=== PATIENT | male | born 1940 | race Caucasian/White ===

== ENCOUNTER → 2020-06-01 10:49 | Outpatient (BNVA) | payer MEDICARE, SELFPAY | PROVIDERS: Family Provider Family Medicine; PCP Family Medicine; Visit Provider Internal Medicine | DX: Z11.59 Encounter for screening for other viral diseases (principal) | CPT/HCPCS: 87635 ==

== ENCOUNTER → 2022-09-17 14:49 | Outpatient (BNVA) | payer MEDICARE, SELFPAY | PROVIDERS: Family Provider Family Medicine; PCP Family Medicine; Visit Provider Family Medicine | DX: L98.9 Disorder of the skin and subcutaneous tissue, unspecified (principal) | CPT/HCPCS: 88304 ==

== ENCOUNTER → 2022-09-25 10:05 | Outpatient (BNVA) | payer MEDICARE, SELFPAY | PROVIDERS: Family Provider Family Medicine; PCP Family Medicine; Visit Provider Family Medicine | DX: I48.91 Unspecified atrial fibrillation (principal); I10 Essential (primary) hypertension | CPT/HCPCS: 80053; 83735; 84443; 85025 ==

== ENCOUNTER 2022-10-02 13:55 | Inpatient (IN) | payer MEDICARE, SELFPAY ==
[2022-10-02] VITALS (24 sets, daily range): BP systolic 139–183; BP diastolic 51–85; PULSE 44–79; RESP 5–26; TEMP 37.1–37.4; O2SAT 89–95
--- NOTE | 2022-10-02 14:07 | ECG_ITS ---
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 Measurements Intervals [place] Rate: 49 P: -30 RI: 116 QRS: 4 QRSD: 94 T: 10 QT: 453 QTc: 411 Interpretive Statements SINUS BRADYCARDIA WITH SHORT RI INTERVAL Compared to ECG 02/19/2017 16:55:37 Short RI interval now present Sinus rhythm no longer present Electronically Signed On 10-03-2022 9:11:02 CUSTOMER SUPPORT CONSULTANT by Yoselin Wen M.D. [id number]
--- NOTE | 2022-10-02 14:07 | XR_ITS ---
WS: [id number] Exam: XR chest 1V portable [id number] Date/Time of Exam: 10/02/2022 2:07 PM Reason For Exam: dyspnea Comparison 02/19/2017. The lungs are fully expanded and clear. Interval cardiac enlargement since prev ious study. No pleural effusions. Bony structures are intact. The mediastinum is not widened. There i s upper thoracic dextroscoliosis. Osseous deformity of the upper thoracic spine and rib cage. XR/XR chest 1V portable [id number] IMPRESSION: 1. No acute cardiopulmonary finding. 2. Some interval cardiac enlargement since the previous study.
--- NOTE | 2022-10-02 15:37 | W.ED.ARRPALP ---
HPI - Arrhythmia/Palpitations General: Chief Complaint: Arrhythmia/Palpitations Stated Complaint: chest pains, low hr Time Seen by Provider: 10/02/22 15:37 History of Present Illness: Mr. Self is an 82-year-old gentleman with history of hypertension and a fib who presented to the emergency department due to chest discomfort with a low heart rate. He reports higher heart rate end approximately 9 days ago when he saw primary care was initiated on metoprolol. He has been taking this as directed and heart rate is continued to slow. He does note exertional dyspnea and orthopnea as well as intermittent arm discomfort and chest discomfort associated with this. He has generalized malaise. Intensity symptoms is moderate. Course has persisted. No other specific changes in health, exacerbating, or alleviating factors identified. Onset (ago): day(s) Duration: constant Severity: severe Context: change in medication Arrhythmia history: atrial fibrillation Associated symptoms: Reports pre-syncope, short of breath and other Review of Systems General: Reports: 10 or more systems reviewed and unremarkable except in HPI and below Card: Reports: pre-syncope PFSH ED PFSH: Medical History BPH (benign prostatic hyperplasia) Chronic indwelling Manning catheter Hip osteoarthritis Hypertension Paroxysmal A-fib Solitary kidney Suprapubic catheter Urinary retention Surgical History H/O hernia repair H/O transurethral resection of prostate Family History Mother Colon cancer Social History Smoking and tobacco status: never smoked Alcohol intake: never Household members: spouse Marital status: Physical Exam Const: COMMON NORMALS: alert GENERAL APPEARANCE: cooperative and well developed HENMT: COMMON NORMALS: normocephalic and atraumatic HEAD & SCALP: normocephalic and atraumatic Eye: COMMON NORMALS: conjunctivae normal CONJUNCTIVA: Yes conjunctivae normal SCLERA: sclerae normal Neck/C-Spine: COMMON NORMALS: supple GENERAL: Yes trachea midline Resp: COMMON NORMALS: clear to auscultation bilaterally EFFORT & INSPECTION: Yes able to speak in complete sentences AUSCULTATION: clear to auscultation bilaterally Cardio: COMMON NORMALS: regular rhythm RATE: bradycardic RHYTHM: regular rhythm GI: COMMON NORMALS: Soft to palpation PALPATION: Yes Soft to palpation and No Tenderness to palpation present (GI) Extremity: GENERAL: Yes normal exam except as noted and Yes edema Neuro: COMMON NORMALS: moves all extremities SENSORIUM/ORIENTATION: Yes alert and No Orientation impaired Psych: COMMON NORMALS: mental status grossly normal and Normal thought process present THOUGHT PROCESS: Normal thought process present Course Vital Signs: Vital signs: Vital Signs Temperature 97.9 F 10/09/22 03:23 Pulse Rate 94 10/09/22 09:42 Respiratory Rate 18 10/09/22 09:42 Blood Pressure 126/89 10/09/22 07:08 Pulse Oximetry 93 10/09/22 11:00 Oxygen Delivery Me thod 10/09/22 09:18 Oxygen Flow Rate 2 10/09/22 03:46 Fraction of Inspir ed Oxygen 2 10/09/22 08:00 MDM - Arrhythmia/Palpitations Medical Decision Making 82-year-old gentleman presenting with chest pain and low heart rate in the context of medication change. Exam as above. EKG notable for sinus bradycardia, no STEMI. Labs mild leukocytosis, normal hemoglobin. No significant electrolyte derangement to explain symptoms. BNP is elevated. Negative viral panel or COVID. Chest x-ray with no lobar consolidation or pneumothorax. Cardiac appears mildly large. Most likely etiology of patient's symptoms is symptomatic bradycardia. At rest he is largely asymptomatic however becomes markedly symptomatic upon exertion and therefore requires further inpatient management. The results of ED evaluation were discussed with the patient including plan for admission due to requirement for level of care not available if discharged to prevent significant worsening/deterioration. Patient agreeable with plan. Discussed with hospitalist service who was agreeable to admit patient. Medical Records I reviewed the patient's medical records. Lab Data I reviewed the patient's lab results. 10/02/22 16:06 10/02/22 16:06 Radiology Impressions Pulmonary Perfusion Imaging 10/03/22 19:27 IMPRESSION: Very low probability pulmonary embolism. Renal Ultrasound 10/05/22 20:10 IMPRESSION: 1. Left kidney not visualized in the renal fossa. See discussion above. 2. Otherwise unremarkable right kidney with mild compensatory enlargement. Abdomen/Pelvis CT 10/06/22 20:22 IMPRESSION: 1. Nonspecific 6 cm area of decreased attenuation in the lateral aspect of the spleen which may represent a large splenic infarct versus cyst versus abscess. This finding is new when compared to CT abdomen of 03/29/2015. Consider follow-up ultrasound or postcontrast CT abdomen to further assess this lesion. 2. Round atelectasis at the left lung base. This may be a sympathetic reaction to adjacent splenic pathology, located just below the diaphragm. 3. Enlarged prostate gland. 4. 3 x 5 cm right inguinal hernia, containing only fat. 5. Severe diverticulosis of the distal colon. No evidence of acute diverticulitis. 6. Decreased hepatic density is noted, consistent with hepatic steatosis. Chest X-Ray 10/08/22 08:58 Impression: Cardiomegaly with clearing of pulmonary vascular congestion. Abdomen Ultrasound 10/08/22 13:49 IMPRESSION: Complex fluid collection within the spleen. No increased vascularity and no significant encapsulation. May be related to hemorrhage or abscess. On the recent CT there is not a lot of inflammation surrounding the spleen. There is also no perisplenic fluid seen by ultrasound. Laboratory Results WBC 8.9 10^3/uL (4.0-10.0) 10/03/22 02:56 RBC 4.56 10^6/uL (4.1-5.3) 10/03/22 02:56 Hgb 12.3 g/dL (11.7-16.6) 10/03/22 02:56 Hct 39.1 % (42.0-52.0) L 10/03/22 02:56 MCV 85.7 fl (80-94) 10/03/22 02:56 MCH 27.0 pg (28.0-34.0) L 10/03/22 02:56 MCHC 31.5 g/dL (30.0-36.0) 10/03/22 02:56 RDW 13.6 % (12.1-15.1) 10/03/22 02:56 Plt Count 215 10^3/cmm (130-400) 10/03/22 02:56 MPV 10.7 fL (7.4-10.4) H 10/03/22 02:56 Neut % (Auto) 70.9 % 10/03/22 02:56 Lymph % (Auto) 16.6 % 10/03/22 02:56 [place] % (Auto) 11.2 % 10/03/22 02:56 Eos % (Auto) 0.3 % 10/03/22 02:56 Baso % (Auto) 0.3 % 10/03/22 02:56 Neut # (Auto) 6.32 10^3/uL (1.8-7.7) 10/03/22 02:56 Lymph # (Auto) 1.5 10^3/uL (0.8-4.8) 10/03/22 02:56 [place] # (Auto) 1.0 10^3/uL (0.2-0.9) H 10/03/22 02:56 Eos # (Auto) 0.0 10^3/uL (0.0-0.8) 10/03/22 02:56 Baso # (Auto) 0.0 10^3/uL (0.0-0.1) 10/03/22 02:56 Nucleated RBC % (auto) 0 % 10/03/22 02:56 Nucleated RBCs # 0.0 /100WBC 10/03/22 02:56 PT 14.00 SECONDS (12.1-14.9) 10/02/22 16:06 INR 1.05 (0.8-1.2) 10/02/22 16:06 APTT 27.4 SECONDS (23.9-36.7) 10/02/22 16:06 D-Dimer 2.15 ug/mIFEU (0-0.59) H 10/02/22 16:06 Sodium 136 mmol/L (136-145) 10/03/22 02:56 Potassium 3.2 mmol/L (3.5-5.1) L 10/03/22 02:56 Chloride 99 mmol/L (98-107) 10/03/22 02:56 Carbon Dioxide 26 mmol/L (22-29) 10/03/22 02:56 Anion Gap 14.2 (5-19) 10/03/22 02:56 BUN 23 mg/dL (8-23) 10/03/22 02:56 Creatinine 1.2 mg/dL (0.7-1.2) 10/03/22 02:56 GFR Calculation Not Reportable 10/03/22 02:56 Glucose 164 mg/dL (65-115) H 10/03/22 02:56 Calculated Osmolality 289 mOsm/kg (285-295) 10/03/22 02:56 Calcium 8.4 mg/dL (8.5-10.5) L 10/03/22 02:56 Magnesium 2.2 mg/dL (1.7-2.3) 10/02/22 16:06 Total Bilirubin 0.9 mg/dL (0.15-1.2) 10/03/22 02:56 AST 32 U/L (0-40) 10/03/22 02:56 ALT 58 U/L (0-41) H 10/03/22 02:56 Alkaline Phosphatase 91 U/L (40-130) 10/03/22 02:56 Troponin T Baseline 32 ng/L (0-15) H 10/02/22 16:06 Troponin T 120 Minute 33.18 ng/L (0-15) H 10/02/22 18:22 Delta Troponin T 1.18 ABS# (0-10) 10/02/22 18:22 Troponin T Hi Sens 6Hr 35.69 ng/L (0-15) H 10/02/22 21:05 Troponin T Hi Sens 6Hr Delta 3.69 ng/L (0-12) 10/02/22 21:05 NT-Pro-B Natriuret Pep 1931 pg/mL (0-450) H 10/02/22 16:06 Total Protein 6.0 g/dL (6.6-8.7) L 10/03/22 02:56 Albumin 3.1 g/dL (3.5-5.2) L 10/03/22 02:56 Globulin 2.9 g/dL (1.3-4.6) 10/03/22 02:56 TSH 2.74 uIU/mL (0.27-4.20) 10/02/22 16:06 Urine Color Claritza (Yellow) 10/03/22 09:25 Urine Appearance Hazy (CLEAR) A 10/03/22 09:25 Urine pH 5 (5-7) 10/03/22 09:25 Ur Specific [place] 1.020 (1.005-1.030) 10/03/22 09:25 Urine Protein 2+ (Negative) H 10/03/22 09:25 Urine Glucose (UA) Norm (Normal) 10/03/22 09:25 Urine Ketones 1+ (Negative) H 10/03/22 09:25 Urine Blood 2+ (Negative) H 10/03/22 09:25 Urine Nitrate Positive (Negative) H 10/03/22 09:25 Urine Bilirubin 1+ (Negative) H 10/03/22 09:25 Urine Urobilinogen Neg mg/dL (Negative) 10/03/22 09:25 Ur Leukocyte Esterase 1+ (Negative) H 10/03/22 09:25 Urine RBC 5-10 /hpf (0-2) H 10/03/22 09:25 Urine WBC 5-10 /hpf (0-5) H 10/03/22 09:25 Ur Squamous Epith Cells 0-4 /hpf (0-5) H 10/03/22 09:25 Amorphous Sediment 3+ /hpf 10/03/22 09:25 Urine Bacteria 3+ /hpf (NONE) H 10/03/22 09:25 Fine Granular Casts 0-4 /lpf H 10/03/22 09:25 Urine Mucus 2+ /hpf 10/03/22 09:25 Coronavirus 229E (PCR) Not detected (NOT DETECT) 10/02/22 17:20 Influenza Type A Ag negative (Negative) 10/03/22 08:00 Influenza Type B Ag negative (Negative) 10/03/22 08:00 SARS-CoV-2 (PCR) Not detected (NOT DETECT) 10/02/22 17:20 Discharge Plan Discharge Patient Disposition: Placed in Observation Admit Provider: Suresh Hahn Clinical Impression: Symptomatic bradycardia, CHF (congestive heart failure) Discharge Diet: Cardiac Discharge Activity: Resume usual activity and Increase activity as tolerated Coding Level of Care Code ED Cat Scan Technologist for Rusty Hartman
--- NOTE | 2022-10-02 16:07 | ECG_ITS ---
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 Measurements Intervals [place] Rate: 46 P: 78 DC: 189 QRS: 26 QRSD: 96 T: 60 QT: 430 QTc: 379 Interpretive Statements SINUS BRADYCARDIA Compared to ECG 10/02/2022 14:15:56 Short DC interval no longer present Electronically Signed On 10-03-2022 9:22:25 MANAGER HOME IMPROVEMENT by Yoselin Wen M.D. [id number]
[2022-10-02 16:18] LABS: Basophils % 0.2 %; Eosinophils # 0.1 10^3/uL (0.0-0.8); Eosinophils % 0.8 %; Hematocrit 40.7 % (42.0-52.0); Hemoglobin 13.1 g/dL (11.7-16.6); Lymphocytes # 1.5 10^3/uL (0.8-4.8); Lymphocytes % 12.6 %; Mean Corpuscular HGB Conc 32.2 g/dL (30.0-36.0); Mean Corpuscular Hemoglobin 27.5 pg (28.0-34.0); Mean Corpuscular Volume 85.3 fl (80-94); Mean Platelet Volume 10.6 fL (7.4-10.4); Monocytes % 8.1 %; Neutrophils # 9.29 10^3/uL (1.8-7.7); Neutrophils % 77.5 %; Nucleated Red Blood Cells % 0 %; Platelet Count 213 10^3/cmm (130-400); Red Blood Count 4.77 10^6/uL (4.1-5.3); Red Cell Distribution Width 13.7 % (12.1-15.1)
[2022-10-02 16:27] LABS: INR 1.05 (0.8-1.2); Partial Thromboplastin Time 27.4 SECONDS (23.9-36.7)
[2022-10-02 16:47] LABS: Troponin(5th) Baseline 32 ng/L (0-15)
[2022-10-02 16:55] LABS: Alanine Aminotransferase 71 U/L (0-41); Albumin Level 3.5 g/dL (3.5-5.2); Alkaline Phosphatase 102 U/L (40-130); Blood Urea Nitrogen 24 mg/dL (8-23); Calcium 8.9 mg/dL (8.5-10.5); Carbon Dioxide 27 mmol/L (22-29); Chloride 97 mmol/L (98-107); Globulin 3.2 g/dL (1.3-4.6); Glucose 172 mg/dL (65-115); Magnesium 2.2 mg/dL (1.7-2.3); NT Pro B Type Natriuretic Pept 1931 pg/mL (0-450); Osmolality Calculated 290 mOsm/kg (285-295); Sodium 136 mmol/L (136-145); Thyroid Stimulating Hormone 2.74 uIU/mL (0.27-4.20); Total Bilirubin 1.1 mg/dL (0.15-1.2); Total Protein 6.7 g/dL (6.6-8.7)
[2022-10-02 16:56] LABS: Anion Gap 15.8 (5-19); Aspartate Amino Transferase 32 U/L (0-40); Potassium 3.8 mmol/L (3.5-5.1)
[2022-10-02 18:02] LABS: D Dimer 2.15 ug/mIFEU (0-0.59)
[2022-10-02 18:53] LABS: Troponin 5 2HR 33.18 ng/L (0-15)
[2022-10-02 18:55] LABS: Troponin 5 2HR Delta 1.18 ABS# (0-10)
--- NOTE | 2022-10-02 19:05 | USCV_ITS ---
Aramis Julio Age: 82 Gender: M : 1940 Exam Date: 10/02/2022 22:50 Ordering Phys: Suresh Hahn MD Technologist: MICHEAL [place] [facility] [place]: HTN CHAMBERS bradycardia , cardiomegaly. No history of cardiac intervention per patient. BP: 139 / 51 HR: 71 Rhythm: Sinus Technical Quality: Adequate MEASUREMENTS (Male / Female) Normal Values 2D ECHO LV Diastolic Diameter PLAX 4.0 cm 4.2 - 5.9 / 3.9 - 5.3 cm LV Systolic Diameter PLAX 2.6 cm IVS Diastolic Thickness 1.6 cm 0.6 - 1.0 / 0.6 - 0.9 cm IVS Systolic Thickness 1.5 cm LVPW Diastolic Thickness 1.3 cm 0.6 - 1.0 / 0.6 - 0.9 cm LVPW Systolic Thickness 1.4 cm LVOT Diameter 2.8 cm LV Ejection Fraction 2D Teich 66.5 % LV Ejection Fraction MOD 2C 67.3 % LV Ejection Fraction 2C AL 67.6 % LA Diameter 5.8 cm LA Width 5.6 cm LA Height 6.3 cm RA Width 3.4 cm RA Height 5.0 cm Aorta at Sinotubular Diameter 3.5 cm IVC Diameter 2.3 cm M-MODE Aortic Annulus Diameter 3.8 cm LA Ao Ratio MM 1.6 MV E Point Septal Separation 0.3 cm DOPPLER AV Peak Velocity 158.0 cm/s LVOT Peak Velocity 135.0 cm/s AV Area Cont Eq vti 4.6 cm squared AV Area Cont Eq pk 5.3 cm squared MV Area PHT 3.7 cm squared Mitral E to A Ratio 1.9 MV E' Velocity 86.5 cm/s Mitral E to MV E' Ratio 14.5 Mitral E to LV E' Lateral Ratio 13.3 Mitral E to LV E' Septal Ratio 16.1 TR Peak Velocity 350.0 cm/s TR Peak Gradient 49.0 mmHg TV Peak E Velocity 65.0 cm/s Right Atrial Pressure 10.0 mmHg Pulmonary Artery Systolic Pressu 59.0 mmHg PV Peak Velocity 114.0 cm/s RV Acceleration Time 0.1 s RV Ejection Time 0.4 s RV AcT/ET 0.3 FINDINGS Left Ventricle Left ventricle is normal in size. LV systolic function is normal with EF of 55 to 60%. No regional wall motion abnormalities are seen. Right Ventricle Normal in size and function Right Atrium Normal in size Left Atrium Dilated Mitral Valve Structurally normal mitral valve. Mild mitral regurgitation. Aortic Valve Grossly normal. No significant stenosis or regurgitation. Tricuspid Valve Mild tricuspid regurgitation. RVSP is 55 to 60 mmHg. This is consistent with moderate pulmonary hypertension. Pulmonic Valve Not well-visualized Pericardium Normal Aorta Mildly dilated IVC Dilated CONCLUSIONS Technically limited quality echocardiogram because of poor ultrasonic windows LV systolic function is normal with EF of 55-60% Left atrial dilation Mild mitral regurgitation Mild tricuspid regurgitation Moderate pulmonary hypertension Mildly dilated ascending aorta IVC is dilated No comparison studies are available Manpreet Vasquez MD (Electronically Signed) Final Date: 03 October 2022 13:10 S
[2022-10-02 19:16] LABS: Adenovirus Not Detected (NOT DETECT); Chlamydia Pneumoniae Not Detected (NOT DETECT); Coronavirus 229E,HKU1,NL63,OC4 Not Detected (NOT DETECT); Human Metapneumovirus Not Detected (NOT DETECT); Human Rhinovirus/Enterovirus Not Detected (NOT DETECT); Influenza A Not Detected (NOT DETECT); Influenza A H1 Not Detected (NOT DETECT); Influenza A H1-2009 Not Detected (NOT DETECT); Influenza A H3 Not Detected (NOT DETECT); Influenza B Not Detected (NOT DETECT); Mycoplasma Pneumoniae Not Detected (NOT DETECT); Parainfluenza Virus Type 1 Not Detected (NOT DETECT); Parainfluenza Virus Type 2 Not Detected (NOT DETECT); Parainfluenza Virus Type 3 Not Detected (NOT DETECT); Parainfluenza Virus Type 4 Not Detected (NOT DETECT); Respiratory Syncytial Virus A Not Detected (NOT DETECT); Respiratory Syncytial Virus B Not Detected (NOT DETECT); SARS-COV-2 Not Detected (NOT DETECT)
--- NOTE | 2022-10-02 19:34 | PM.HP ---
Providers/Chief Complaint Admitting Physician: Suresh Hahn Primary Care Provider: Jorge Hess MD Chief Complaint: chest pains, low hr History of Present Illness Pleasant 82-year-old gentleman, hard of hearing, with history of HTN, BPH, urinary retention, chronic Manning catheter, recently diagnosed with atrial fibrillation, started on metoprolol, aspirin. He noticed that after starting metoprolol his heart rate has been decreasing. Presented to the hospital due to generalized arm pain, feeling short of breath, mild pain/discomfort in his arms. Noted to be bradycardic, heart rates in the 40s. With leukocytosis 12,000. Afebrile. Saturating 92% on room air. BUN 24, creatinine 1.2, ALT 71. NT proBNP 1931 without prior. Baseline troponin 32, QRS 133. Sinus bradycardia on EKG. Chest x-ray without acute findings, some interval cardiac lodgment since prior study. D-dimer 2.15. COVID-19 PCR not detected. He is noted to have very short thick neck. He does report getting orthopnea at night, waking up in the morning He is lacking air, gasping, with dry mouth. Review of Systems Const: Reports: fatigue; Denies: fever(s), chills, body aches or malaise Eyes: Denies: change in vision, eye discomfort or eye redness ENMT: Denies: throat pain, oral sores or ear or mastoid pain Card: Reports: other (BL arm pain earlier); Denies: chest pain, edema, pre-syncope or dyspnea on exertion Resp: Reports: dyspnea; Denies: productive cough, change in phlegm color or hemoptysis GI: Denies: abdominal pain, nausea, vomiting, diarrhea, constipation, hematochezia or melena : Denies: flank pain, difficulty urinating, urinary frequency or hematuria Musc: Denies: back pain, joint swelling or joint redness Skin/Breast: Denies: rash or new lesions Neuro: Denies: headache(s), numbness in extremities, weakness in extremities, dizziness, confusion or seizure-like activity Endo: Denies: polyuria or polydipsia Serg/Lymph: Denies: easy bleeding or tender lymph nodes All/Imm: Denies: urticaria or tongue swelling Medications/Allergies Home Medications Medication Instructions Recorded Confirmed Last Taken Type amlodipine 5 mg tablet 5 mg PO DAILY 08/29/22 10/02/22 10/02/22 History hydrochlorothiazide 25 mg tablet 25 mg PO DAILY 08/29/22 10/02/22 10/02/22 History hydrocodone 5 mg-acetaminophen 325 1 tab PO Q8H PRN pain 2 weeks #30 08/29/22 10/02/22 Unknown Rx mg tablet tabs aspirin 325 mg tablet 325 mg PO DAILY #30 tabs 09/25/22 10/02/22 10/02/22 Rx metoprolol tartrate 25 mg tablet 25 mg PO BID #60 tabs 09/25/22 10/02/22 10/02/22 Rx acetaminophen 325 mg capsule 650 mg PO QID PRN Pain 10/02/22 10/02/22 Unknown History ibuprofen 200 mg tablet 400 mg PO Q6H PRN Pain 10/02/22 10/02/22 Unknown History Allergies Allergy/AdvReac Type Severity Reaction Status Date / Time No Known Allergies Allergy Verified 10/02/22 16:45 PFSH Acute PFSH: Medical History (Updated 10/02/22 @ 20:23 by Suresh Hahn MD) BPH (benign prostatic hyperplasia) Chronic indwelling Manning catheter Hip osteoarthritis Hypertension Paroxysmal A-fib Solitary kidney Urinary retention Surgical History H/O hernia repair H/O transurethral resection of prostate Family History Mother Colon cancer Social History (Updated 10/02/22 @ 20:23 by Suresh Hahn MD) Smoking and tobacco status: never smoked Alcohol intake: never Substance/Drug Use: never Household members: spouse Marital status: Vitals/I&O/Wt Last Vital Signs Temp 99.1 F 10/02/22 15:07 Pulse 46 L 10/02/22 17:05 Resp 18 10/02/22 17:05 BP 171/63 10/02/22 17:05 Pulse Ox 93 10/02/22 17:05 O2 Del Method 10/02/22 19:15 Weight last 48 hrs Weight 95.254 kg Physical Exam Const: COMMON NORMALS: patient oriented x3 and alert GENERAL APPEARANCE: cooperative NUTRITIONAL APPEARANCE: overweight ORIENTATION/CONSCIOUSNESS: Yes awake OTHER: Hard of hearing HENMT: COMMON NORMALS: oropharynx normal Neck/C-Spine: OTHER: Thick short neck Resp: COMMON NORMALS: normal respiratory effort and clear to auscultation bilaterally AUSCULTATION: clear to auscultation bilaterally Cardio: COMMON NORMALS: no JVD, regular rhythm, S1 normal heart sound present, S2 normal heart sound present and No murmurs present (Cardio) RATE: bradycardic RHYTHM: regular rhythm HEART SOUNDS: S1 normal heart sound present and S2 normal heart sound present GI: COMMON NORMALS: Normal to inspection, nondistended, normoactive bowel sounds present, Soft to palpation and non-tender PALPATION: Yes Soft to palpation Extremity: COMMON NORMALS: no joint enlargement and no pedal edema Neuro: COMMON NORMALS: patient oriented x3 and moves all extremities SENSORIUM/ORIENTATION: Yes alert Skin: COMMON NORMALS: no rashes or lesions noted GENERAL SKIN EXAM: no rashes or lesions noted Data 10/02/22 16:06 10/02/22 16:06 A&P Assessment and plan (1) Symptomatic bradycardia: Symptomatic bradycardia, heart rates in the 40s, with fatigue, dyspnea, bilateral arm pain. Complete troponin EKG series. Assess TTE. Abnormal D-dimer, discussed with him additional assessment for PE. He states has a solitary kidney really would like to avoid risk of contrast. Agreeable on discussion of risks to anticoagulation, assessment by VQ scan tomorrow. Monitor on telemetry. Hold metoprolol. Otherwise electrolytes are okay. TSH is okay. (2) Dyspnea: Additional assessment as above. COVID-19 PCR negative. No obvious pneumonia on chest x-ray. Additionally dyspneic in the morning, fatigue. Thick short neck. High suspicion for sleep apnea. Possible additional underlying pulmonary disorder. Will benefit from sleep study, PFT. (3) Paroxysmal A-fib: Recently diagnosed. CHADS2 score of 2. Discussed with him anticoagulation, he is agreeable. Start with Lovenox. (4) Chronic indwelling Manning catheter: With history of urine obstruction, BPH. Unsuccessful with self-catheterization. Chronic catheter with leg bag. Follow-up with urology. Plan Solitary kidney HTN Attestations Medical Necessity Statement*: Place in observation for additional assessment and management of symptomatic bradycardia, dyspnea and gentleman recently notes with paroxysmal A. fib. Coding Level of Care Code Acute Musical String Maker for Chg Fwd Exam Comprehensive Diagnoses Symptomatic bradycardia R00.1 Dyspnea R06.00 Paroxysmal A-fib I48.0 Chronic indwelling Manning catheter Z97.8
[2022-10-02] MEDS: enoxaparin 100 mg/mL Syringe 95 MG SUBCUT (20:32)
[2022-10-02 21:30] LABS: Troponin 5 6HR 35.69 ng/L (0-15)
[2022-10-02 21:47] LABS: Troponin 5 6HR Delta 3.69 ng/L (0-12)
--- NOTE | 2022-10-02 22:36 | ECG_ITS ---
[facility] Test Date: 2022-10-02 Pat Name: Julio Self Department: Room: 111 Gender: Male Reference Assistant: : 1940 Requested By: Dimitry Baum Order Number: [id number] Wilbur MD: Manpreet Vasquez M.D. Measurements Intervals [place] Rate: 53 P: 71 [place]: 189 QRS: 49 QRSD: 99 T: 72 QT: 431 QTc: 407 Interpretive Statements SINUS BRADYCARDIA Compared to ECG 10/02/2022 16:48:30 No significant changes Electronically Signed On 10-03-2022 12:59:28 COUNTY OR CITY AUDITOR by Manpreet Vasquez M.D. [id number]
[2022-10-02] MEDS: HYDROcodone-acetaminophen 5-325 mg Tablet 1 TAB PO (23:32)
--- NOTE | 2022-10-02 23:53 | PC.NURSE ---
Patient chronic indwelling catheter with leg bag attached at this time.
[2022-10-03] VITALS (12 sets, daily range): BP systolic 102–156; BP diastolic 50–73; PULSE 46–70; RESP 10–30; TEMP 36.8–39.5; O2SAT 91–96
[2022-10-03 04:54] LABS: Basophils % 0.3 %; Eosinophils % 0.3 %; Hematocrit 39.1 % (42.0-52.0); Hemoglobin 12.3 g/dL (11.7-16.6); Lymphocytes # 1.5 10^3/uL (0.8-4.8); Lymphocytes % 16.6 %; Mean Corpuscular HGB Conc 31.5 g/dL (30.0-36.0); Mean Corpuscular Volume 85.7 fl (80-94); Mean Platelet Volume 10.7 fL (7.4-10.4); Monocytes % 11.2 %; Neutrophils # 6.32 10^3/uL (1.8-7.7); Neutrophils % 70.9 %; Nucleated Red Blood Cells % 0 %; Platelet Count 215 10^3/cmm (130-400); Red Blood Count 4.56 10^6/uL (4.1-5.3); Red Cell Distribution Width 13.6 % (12.1-15.1); White Blood Count 8.9 10^3/uL (4.0-10.0)
[2022-10-03 05:22] LABS: Alanine Aminotransferase 58 U/L (0-41); Albumin Level 3.1 g/dL (3.5-5.2); Alkaline Phosphatase 91 U/L (40-130); Anion Gap 14.2 (5-19); Aspartate Amino Transferase 32 U/L (0-40); Blood Urea Nitrogen 23 mg/dL (8-23); Calcium 8.4 mg/dL (8.5-10.5); Carbon Dioxide 26 mmol/L (22-29); Chloride 99 mmol/L (98-107); Globulin 2.9 g/dL (1.3-4.6); Glucose 164 mg/dL (65-115); Osmolality Calculated 289 mOsm/kg (285-295); Potassium 3.2 mmol/L (3.5-5.1); Sodium 136 mmol/L (136-145); Total Bilirubin 0.9 mg/dL (0.15-1.2)
[2022-10-03] MEDS: HYDROcodone-acetaminophen 5-325 mg Tablet 1 TAB PO (06:30)
[2022-10-03] MEDS: enoxaparin 100 mg/mL Syringe 95 MG SUBCUT ×2 (06:31→19:46)
--- NOTE | 2022-10-03 07:53 | XR_ITS ---
WS: [id number] Exam: XR chest 1V portable [id number] Date/Time of Exam: 10/03/2022 7:58 AM Reason For Exam: fever,sob Comparison 10/02/2022. There appears to be mild pulmonary vascular congestion. Heart size is top limits normal. No pleural e ffusions. No consolidating infiltrates are seen. The lungs are fully inflated. The mediastinum is nor mal in contour for technique. Bony structures are intact. XR/XR chest 1V portable [id number] IMPRESSION: 1. Pulmonary vascular congestion suggesting early CHF.
[2022-10-03] MEDS: hydroCHLOROthiazide 25 mg Tablet PO (08:28)
[2022-10-03] MEDS: levoFLOXacin 500 mg Tablet PO ×2 (08:28→08:29)
[2022-10-03 08:44] LABS: Influenza A by IFA negative (Negative); Influenza B by IFA negative (Negative)
[2022-10-03] MEDS: FUROsemide 10 mg/mL SDV 2mL 20 MG IVP (09:21)
[2022-10-03] MEDS: potassium chloride ER 20 mEq Tablet 40 MEQ PO (09:22)
[2022-10-03 09:46] LABS: Blood Urine 2+ (Negative); Glucose Urine UA Norm (Normal); Ketones Urine 1+ (Negative); Nitrate Urine Positive (Negative); Protein Urine 2+ (Negative); Urine Appearance Hazy (CLEAR); Urine Color Amber (Yellow); pH Urine 5 (5-7)
[2022-10-03 09:47] LABS: Add Urine Microscopic? YES; Bilirubin Urine 1+ (Negative); Leukocyte Esterase Urine 1+ (Negative); Urobilinogen Urine Neg (Negative)
[2022-10-03 10:15] LABS: Bacteria Urine 3+ /hpf; Squamous Epithelial Cell Urine 0-4 /hpf (0-5)
[2022-10-03 10:16] LABS: Add Urine Culture? Yes; Amorphous Sediment Urine 3+ /hpf; Fine Granular Casts Urine 0-4 /lpf; Mucus Urine 2+ /hpf
--- NOTE | 2022-10-03 10:44 | PC.CHAP ---
Pastoral Care Encounter/Spiritual Assessment Type of Contact [] Declined tool hardener visit [] Patient/Family/Request visit [] Outpatient visit [] Follow-up visit [] Physician referral [] Code/Alert []x Routine visit [] Staff referral [] Actively dying [] Patient sleeping [] Family support [] [] Out of room [] Palliative care [] [] Receiving care in room [] Pre-surgical visit [] Trauma [] Long length of stay [] ICU visit [] Other: Relational/Emotional Strength []x Patient feels connected with others/family/visitors/staff [] Distress [] Loneliness/isolation [] Abandonment Spirituality of Patient [x] Person of Erica [] Attends Protestant of their Erica [x] Believes in Prayer [] Reads Bible or Mosque materials [] There are Spiritual issues to be addressed Associate Dean Of Women Interventions [x] Prayer [] Active listening [] Non-anxious presence [] Spiritual/emotional support [] Crisis/trauma care [] Spiritual counseling [] Bereavement support [] Provided bereavement packet [] Provided Bible/devotional materials [] Provided toy/stuffed animal, coloring book to patient or family member [] Provided Communion [] Anointing/[place] [] Salvation [x] Completed spiritual assessment [] Other: Impact on Illness or Injury [] Angry [] Fearful [] Anxious [] Often cries [] Exhaustion [] Unable to work [] Unable to attend jehovah's witness [] Unable to walk/stand [] Unable to read [] Unable to drive [] Unable to eat/drink [] Unable to sleep [] Unable to be with family [] Patient intubated [] Other: Summary Time spent with patient
--- NOTE | 2022-10-03 11:09 | PC.NURSE ---
at approx 0745..pt became very restless, has rigors.pulled iv out.o2 level high 80's.placed on o2 via nc at 2l/min.oral temp 103.1.bp stable.dr griffin notified.he ordered blood cultures,ua,,pcxr,began antibiotic.tylenol given for fever.
--- NOTE | 2022-10-03 11:34 | PC.NURSE ---
vq scan performed.pt tolerated well.pt no longer agitated.temp has come down.
--- NOTE | 2022-10-03 12:05 | P.PN_ITS ---
Subjective Subjective: Very difficult morning this morning, feeling unwell, malaise, dyspnea, spiked a fever 100.6. Oxygen increased up to 5 L. Sat up in bed. Feeling slightly better. Blood culture, chest x-ray, rapid flu, UA obtained. Given Lasix, breathing treatment. Vitals/I&O/Wt Last Vital Signs Temp 99.2 F 10/03/22 11:45 Pulse 63 10/03/22 11:45 Resp 27 H 10/03/22 11:45 BP 102/50 10/03/22 11:45 Pulse Ox 94 10/03/22 11:45 O2 Del Method 10/03/22 11:45 O2 Flow Rate 5 10/03/22 11:45 10/02/22 10/03/22 10/03/22 22:59 06:59 14:59 Intake Total 0 / 0 120 / 120 Output Total 0 / 0 600 / 600 200 / 200 Balance 0 / 0 -600 / -600 -80 / -80 Weight last 48 hrs Weight 98.928 kg Weight 98.928 kg Weight 95.254 kg Physical Exam Const: COMMON NORMALS: patient oriented x3 and alert GENERAL APPEARANCE: cooperative NUTRITIONAL APPEARANCE: overweight ORIENTATION/CONSCIOUSNESS: Yes awake OTHER: Hard of hearing HENMT: COMMON NORMALS: oropharynx normal Neck/C-Spine: COMMON NORMALS: no JVD OTHER: Thick short neck Resp: COMMON NORMALS: normal respiratory effort AUSCULTATION: diminished lung sounds OTHER: Pursed lip breathing Cardio: COMMON NORMALS: no JVD, regular rhythm, S1 normal heart sound present, S2 normal heart sound present and No murmurs present (Cardio) RATE: bradycardic RHYTHM: regular rhythm HEART SOUNDS: S1 normal heart sound present and S2 normal heart sound present GI: COMMON NORMALS: Normal to inspection, nondistended, normoactive bowel sounds present, Soft to palpation and non-tender PALPATION: Yes Soft to palpation Extremity: COMMON NORMALS: no joint enlargement and no pedal edema Neuro: COMMON NORMALS: patient oriented x3 and moves all extremities SENSORIUM/ORIENTATION: Yes alert Skin: COMMON NORMALS: no rashes or lesions noted GENERAL SKIN EXAM: no rashes or lesions noted Data 10/03/22 02:56 10/03/22 02:56 Micro: Microbiology 10/03/22 09:30 Blood Culture - Preliminary Blood SPECIMEN COLLECTED 10/03/22 09:20 Blood Culture - Preliminary Blood SPECIMEN COLLECTED A&P Assessment and plan (1) CHF (congestive heart failure): Acute CHF, pulm edema. Lasix 20 mg IV. Cardiac diet. Monitor I&O. Type unknown. Follow-up pending TTE. Heart rate this morning slightly better up to 60s-low 70s. (2) Dyspnea: Very low probability of PE. Acute chest. Blood parameters are checked as well, negative. COVID-19 PCR negative. Empirically started on Levaquin for now in case of atypical pneumonia presentation given fever. Additionally dyspneic in the morning, fatigue. Thick short neck. High suspicion for sleep apnea. Possible additional underlying pulmonary disorder. Will benefit from sleep study, PFT. (3) Symptomatic bradycardia: Heart rate doing better with holding metoprolol. 60s to low 70s today. Continue to hold beta-brady. Pending TTE. Abnormal D-dimer, VQ scan very low probability of PE. Monitor on telemetry. Hold metoprolol. Otherwise electrolytes are okay. TSH is okay. (4) Paroxysmal A-fib: Recently diagnosed. CHADS2 score of 2. Discussed with him anticoagulation, he is agreeable. Lovenox. (5) Chronic indwelling Manning catheter: With history of urine obstruction, BPH. Unsuccessful with self-catheterization. Chronic catheter with leg bag. Follow-up with urology. Exchange catheter (6) UTI (urinary tract infection): Started on Levaquin as above. Follow-up urine culture. Exchange Manning Plan Fever: UTI as above Solitary kidney HTN Attestations Medical Necessity Statement*: Admission of over 2 midnights needed for assessment management of acute CHF, UTI, recovering from bradycardia. Coding Level of Care Code Acute Capital Project Engineer for [facility] Fwd Diagnoses CHF (congestive heart failure) I50.9 Dyspnea R06.00 Symptomatic bradycardia R00.1 Paroxysmal A-fib I48.0 Chronic indwelling Manning catheter Z97.8 UTI (urinary tract infection) N39.0
[2022-10-03] MEDS: ipratropium-albuterol 3 mL Neb INHALATION ×2 (13:16→22:11)
--- NOTE | 2022-10-03 16:48 | PC.NURSE ---
suprapubic catheter changed as ordered.#16 kazakh catheter inserted using aseptic technique.return of small amt dk ellen urine received.bulb inflated with 10 cc water.pt tolerated procedure well
--- NOTE | 2022-10-03 19:27 | NM_ITS ---
WS: [id number] NUCLEAR MEDICINE VENTILATION/PERFUSION LUNG SCAN HISTORY: assess for pe COMPARISON: Chest radiograph 10/01/2022 TECHNIQUE: Ventilation: 30.1 mCi of Technetium 99 DTPA aerosol inhaled. Perfusion: 5.2 mCi of technetium 99m MAA IV. Very good perfusion to both lungs. No pulmonary defects. Much better perfusion as compared to the kenneth tilation. Detection is heterogeneous due to airspace disease. NM/NM pul vent and perfus* [id number] IMPRESSION: Very low probability pulmonary embolism.
[2022-10-04] VITALS (14 sets, daily range): BP systolic 101–139; BP diastolic 49–71; PULSE 47–79; RESP 12–23; TEMP 36.7–37; O2SAT 22–99
[2022-10-04 02:06] LABS: Basophils % 0.2 %; Eosinophils # 0.3 10^3/uL (0.0-0.8); Eosinophils % 1.4 %; Hematocrit 37.9 % (42.0-52.0); Hemoglobin 12.2 g/dL (11.7-16.6); Lymphocytes # 1.9 10^3/uL (0.8-4.8); Lymphocytes % 8.3 %; Mean Corpuscular HGB Conc 32.2 g/dL (30.0-36.0); Mean Corpuscular Hemoglobin 27.4 pg (28.0-34.0); Mean Corpuscular Volume 85.2 fl (80-94); Mean Platelet Volume 11.2 fL (7.4-10.4); Monocytes # 1.9 10^3/uL (0.2-0.9); Monocytes % 8.3 %; Neutrophils # 18.67 10^3/uL (1.8-7.7); Neutrophils % 80.3 %; Nucleated Red Blood Cells % 0 %; Platelet Count 171 10^3/cmm (130-400); Red Blood Count 4.45 10^6/uL (4.1-5.3); Red Cell Distribution Width 13.8 % (12.1-15.1); White Blood Count 23.2 10^3/uL (4.0-10.0)
[2022-10-04 02:40] LABS: Alanine Aminotransferase 57 U/L (0-41); Albumin Level 2.9 g/dL (3.5-5.2); Alkaline Phosphatase 118 U/L (40-130); Anion Gap 18.2 (5-19); Aspartate Amino Transferase 46 U/L (0-40); Blood Urea Nitrogen 35 mg/dL (8-23); Calcium 8.6 mg/dL (8.5-10.5); Carbon Dioxide 26 mmol/L (22-29); Chloride 98 mmol/L (98-107); Globulin 3.1 g/dL (1.3-4.6); Glucose 236 mg/dL (65-115); Osmolality Calculated 302 mOsm/kg (285-295); Potassium 4.2 mmol/L (3.5-5.1); Sodium 138 mmol/L (136-145); Total Bilirubin 0.9 mg/dL (0.15-1.2)
[2022-10-04] MEDS: HYDROcodone-acetaminophen 5-325 mg Tablet 1 TAB PO ×2 (05:45→21:53)
--- NOTE | 2022-10-04 05:52 | PC.NURSE ---
Spoke with regarding patient complaint of constipation, Dr King ordered PRN MOM.
[2022-10-04] MEDS: ipratropium-albuterol 3 mL Neb INHALATION ×3 (07:35→19:39)
[2022-10-04] MEDS: enoxaparin 100 mg/mL Syringe 95 MG SUBCUT ×2 (08:09→18:26)
[2022-10-04] MEDS: hydroCHLOROthiazide 25 mg Tablet PO (08:11)
[2022-10-04] MEDS: levoFLOXacin 500 mg Tablet PO (08:11)
[2022-10-04] MEDS: polyethylene glycol 3350 Pkt 17 gm PO (12:24)
--- NOTE | 2022-10-04 20:49 | PM.PN ---
Subjective Subjective: Today he is feeling slightly better. Discussed with him improving oxygenation. Discussed JAKE. Discussed high suspicion for RONALD. Vitals/I&O/Wt Last Vital Signs Temp 98.2 F 10/04/22 04:00 Pulse 67 10/04/22 19:39 Resp 16 10/04/22 15:30 BP 131/71 10/04/22 15:30 Pulse Ox 22 L 10/04/22 19:39 O2 Del Method 10/04/22 19:39 O2 Flow Rate 3 10/04/22 19:39 FiO2 3.5 10/04/22 02:00 10/04/22 10/04/22 10/04/22 06:59 14:59 22:59 Intake Total 720 / 720 Output Total 175 / 575 400 / 400 Balance -175 / 10 720 / 720 -400 / 320 Weight last 48 hrs Weight 103.022 kg Weight 98.928 kg Weight 98.928 kg Physical Exam Narrative: at bedside. Const: COMMON NORMALS: patient oriented x3 and alert GENERAL APPEARANCE: cooperative NUTRITIONAL APPEARANCE: overweight ORIENTATION/CONSCIOUSNESS: Yes awake OTHER: Hard of hearing HENMT: COMMON NORMALS: oropharynx normal Neck/C-Spine: COMMON NORMALS: no JVD OTHER: Thick short neck Resp: COMMON NORMALS: normal respiratory effort and clear to auscultation bilaterally AUSCULTATION: clear to auscultation bilaterally and diminished lung sounds Cardio: COMMON NORMALS: no JVD, regular rhythm, S1 normal heart sound present, S2 normal heart sound present and No murmurs present (Cardio) RATE: bradycardic RHYTHM: regular rhythm HEART SOUNDS: S1 normal heart sound present and S2 normal heart sound present GI: COMMON NORMALS: Normal to inspection, nondistended, normoactive bowel sounds present, Soft to palpation and non-tender PALPATION: Yes Soft to palpation Extremity: COMMON NORMALS: no joint enlargement and no pedal edema Neuro: COMMON NORMALS: patient oriented x3 and moves all extremities SENSORIUM/ORIENTATION: Yes alert Skin: COMMON NORMALS: no rashes or lesions noted GENERAL SKIN EXAM: no rashes or lesions noted Data 10/04/22 01:04 10/04/22 01:04 Micro: Microbiology 10/03/22 09:25 Urine Culture - Preliminary Urine,Clean Catch Gram Negative Rods 10/03/22 09:20 Blood Culture - Preliminary Blood 10/03/22 09:30 Blood Culture - Preliminary Blood A&P Assessment and plan (1) CHF (congestive heart failure): With improvement in symptoms. Noted dilated IVC. With worsening renal function with diuresis. Overall may portend poor prognosis. Reassess renal function, volume status. Acute diastolic heart failure. Bradycardia has improved. (2) Dyspnea: Due to acute diastolic CHF, RONALD likely as well. Levaquin for possible pneumonia. Feeling somewhat better today. X-rays are improving, down to 3 L nasal cannula requirement. Very low probability of PE. Blood parameters are checked as well, negative. COVID-19 PCR negative. Additionally dyspneic in the morning, fatigue. Thick short neck. High suspicion for sleep apnea. Possible additional underlying pulmonary disorder. Will benefit from sleep study, PFT. (3) Symptomatic bradycardia: Heart rate doing better with holding metoprolol. 60s to low 70s today. Continue to hold beta-brady. Abnormal D-dimer, VQ scan very low probability of PE. Monitor on telemetry. Hold metoprolol. Otherwise electrolytes are okay. TSH is okay. (4) Paroxysmal A-fib: Recently diagnosed. CHADS2 score of 2. Discussed with him anticoagulation, he is agreeable. Lovenox. TTE ?Technically limited quality echocardiogram because of poor ?ultrasonic windows ?LV systolic function is normal with EF of 55-60% ?Left atrial dilation ?Mild mitral regurgitation ?Mild tricuspid regurgitation ?Moderate pulmonary hypertension ?Mildly dilated ascending aorta ?IVC is dilated ?No comparison studies are available (5) Chronic indwelling Manning catheter: With history of urine obstruction, BPH. Unsuccessful with self-catheterization. Chronic catheter with leg bag. Follow-up with urology. Catheter to. (6) UTI (urinary tract infection): Complicated UTI with chronic suprapubic catheter. Continue Levaquin. Follow-up urine culture. Catheter changed. Plan HPI: Creatinine up to 2. Discussed with him to discontinue taking ibuprofen. Hold HCTZ. Held diuretics for now. Reassess renal function. Suprapubic catheter exchanged. Fever: UTI as above Solitary kidney HTN Attestations Medical Necessity Statement*: Continue admission for assessment and management of acute diastolic CHF complicated by JAKE. Complicated UTI. Coding Level of Care Code Acute Machine Cleaner for [facility] Diagnoses CHF (congestive heart failure) I50.9 Dyspnea R06.00 Symptomatic bradycardia R00.1 Paroxysmal A-fib I48.0 Chronic indwelling Manning catheter Z97.8 UTI (urinary tract infection) N39.0
[2022-10-05] VITALS (14 sets, daily range): BP systolic 96–148; BP diastolic 62–77; PULSE 61–145; RESP 12–25; TEMP 36.4–36.9; O2SAT 92–98
[2022-10-05 01:31] LABS: Basophils % 0.1 %; Eosinophils % 0.1 %; Hematocrit 36.7 % (42.0-52.0); Lymphocytes # 1.7 10^3/uL (0.8-4.8); Lymphocytes % 8.4 %; Mean Corpuscular HGB Conc 32.7 g/dL (30.0-36.0); Mean Corpuscular Hemoglobin 27.5 pg (28.0-34.0); Mean Corpuscular Volume 84.2 fl (80-94); Mean Platelet Volume 11.1 fL (7.4-10.4); Monocytes % 10.3 %; Neutrophils % 79.2 %; Nucleated Red Blood Cells % 0 %; Platelet Count 162 10^3/cmm (130-400); Red Blood Count 4.36 10^6/uL (4.1-5.3); White Blood Count 19.8 10^3/uL (4.0-10.0)
[2022-10-05 01:51] LABS: Alanine Aminotransferase 42 U/L (0-41); Albumin Level 2.8 g/dL (3.5-5.2); Alkaline Phosphatase 98 U/L (40-130); Anion Gap 14.9 (5-19); Aspartate Amino Transferase 23 U/L (0-40); Blood Urea Nitrogen 45 mg/dL (8-23); Calcium 8.3 mg/dL (8.5-10.5); Carbon Dioxide 26 mmol/L (22-29); Chloride 97 mmol/L (98-107); Globulin 3.2 g/dL (1.3-4.6); Glucose 233 mg/dL (65-115); Osmolality Calculated 297 mOsm/kg (285-295); Potassium 3.9 mmol/L (3.5-5.1); Sodium 134 mmol/L (136-145); Total Bilirubin 0.6 mg/dL (0.15-1.2)
[2022-10-05] MEDS: ipratropium-albuterol 3 mL Neb INHALATION ×3 (08:28→19:32)
--- NOTE | 2022-10-05 11:15 | ECG_ITS ---
[facility] Test Date: 2022-10-05 Pat Name: Julio Self Department: Room: 111 Gender: Male Welfare Eligibility Worker: : 1940 Requested By: Suresh Hahn Order Number: [id number] Wilbur MD: Yoselin Wen M.D. Measurements Intervals [place] Rate: 141 P: 0 GA: 0 QRS: -3 QRSD: 91 T: 34 QT: 286 QTc: 438 Interpretive Statements ATRIAL FIBRILLATION WITH RAPID VENTRICULAR RESPONSE NONSPECIFIC T-WAVE ABNORMALITY Compared to ECG 10/02/2022 22:36:50 T-wave abnormality now present Sinus bradycardia no longer present Electronically Signed On 10-06-2022 8:30:33 DEDICATED REGIONAL DRIVER by Yoselin Wen M.D. [id number]
[2022-10-05] MEDS: levoFLOXacin 500 mg Tablet PO (11:27)
[2022-10-05] MEDS: enoxaparin 100 mg/mL Syringe 95 MG SUBCUT (11:27)
--- NOTE | 2022-10-05 11:55 | PC.NURSE ---
Patient is tachy with a heart rate of 140-150. EKG completed by respiratory which shoes afib with RVR. Dr Oliveira notified via [facility] messenger, no response. Nurse tried to call Selma via the lathe set up operator and it went to voicemail and voicemail is full.
--- NOTE | 2022-10-05 11:59 | PC.NURSE ---
Dr. Hahn came to the nurse's station shortly after I tried to call him and acknowledged patient's EKG and told racebook writer patient will be seen by Dr. Wen because he came in with bradycardia.
[2022-10-05] MEDS: acetaminophen 325 mg Tablet 650 MG PO (12:03)
--- NOTE | 2022-10-05 12:20 | P.CONIM_ITS ---
Providers/Reason For Consult Consulting Physician/Specialty*: Dr. Wen, cardiology Reason for Consult*: Atrial fibrillation, bradycardia Attending Physician: Suresh Hahn Primary Care Provider: Jorge Hess MD History of Present Illness History of Present Illness Julio Self is a 82 year old male with past medical history of hypertension, obesity, BPH, history of urinary retention with chronic indwelling Manning catheter and recently diagnosed atrial fibrillation. He was started on aspirin and metoprolol recently by Dr. Hess. Patient had seen his primary care physician with not feeling well and shortness of breath and was found to be in atrial fibrillation with rapid Johnna response with heart rate in 130s. After being started on metoprolol, it seems like he converted to sinus rhythm/sinus bradycardia. He presented to the ER from what he tells me with complaints of shortness of breath. He was found to be in sinus bradycardia on EKG with heart rate in high 40s. Metoprolol was held. He was also found to have leukocytosis. BUN 23 and creatinine 1.2 on arrival that increased to 45 and 2 today. Baseline troponin T 32 at 2 hours 33 and it 6 hours 36. NT proBNP 1931. TSH 2.74. Heart rate improved to 60s and 70s of metoprolol. However, patient went into A. fib with RVR earlier today. Patient and also endorse to snoring and apneic spells. No prior sleep study. Patient denies having palpitations at this time but says he still short of breath. No chest pain. I have been asked to evaluate the patient for further management. Review of Systems Const: Reports: fatigue; Denies: fever(s), chills, body aches or malaise Eyes: Denies: change in vision, eye discomfort or eye redness ENMT: Denies: throat pain, oral sores or ear or mastoid pain Card: Reports: other; Denies: chest pain, palpitations, edema, pre-syncope or dyspnea on exertion Resp: Reports: dyspnea; Denies: productive cough, change in phlegm color or hemoptysis GI: Denies: abdominal pain, nausea, vomiting, diarrhea, constipation, alysa tochezia or melena : Denies: flank pain, difficulty urinating, urinary frequency or hematuria Musc: Denies: back pain, joint swelling or joint redness Skin/Breast: Denies: rash or new lesions Neuro: Denies: headache(s), numbness in extremities, weakness in extremities, dizziness, confusion or seizure-like activity Endo: Denies: polyuria or polydipsia Alysa/Lymph: Denies: easy bleeding or tender lymph nodes All/Imm: Denies: urticaria or tongue swelling Medications/Allergies Home Medications Medication Instructions Recorded Confirmed Last Taken Type amlodipine 5 mg tablet 5 mg PO DAILY 08/29/22 10/02/22 10/02/22 History hydrochlorothiazide 25 mg tablet 25 mg PO DAILY 08/29/22 10/02/22 10/02/22 History hydrocodone 5 mg-acetaminophen 325 1 tab PO Q8H PRN pain 2 weeks #30 08/29/22 10/02/22 Unknown Rx mg tablet tabs aspirin 325 mg tablet 325 mg PO DAILY #30 tabs 09/25/22 10/02/22 10/02/22 Rx metoprolol tartrate 25 mg tablet 25 mg PO BID #60 tabs 09/25/22 10/02/22 10/02/22 Rx acetaminophen 325 mg capsule 650 mg PO QID PRN Pain 10/02/22 10/02/22 Unknown History ibuprofen 200 mg tablet 400 mg PO Q6H PRN Pain 10/02/22 10/02/22 Unknown History Allergies Allergy/AdvReac Type Severity Reaction Status Date / Time No Known Allergies Allergy Verified 10/02/22 16:45 Current Medications Generic Name Dose Route Start Last Admin Trade Name Freq PRN Reason Stop Dose Admin Acetaminophen 650 mg 10/02/22 20:26 10/05/22 12:03 Acetaminophen 325 Mg Tablet PO 650 mg QID PRN Administration Pain Hydrocodone Bitart/Acetaminophen 1 tab 10/02/22 20:26 10/04/22 21:53 Hydrocodone-Acetaminophen 5-325 Mg Tablet PO 1 tab Q8H PRN Administration pain Albuterol/Ipratropium 3 ml 10/03/22 14:00 10/05/22 08:28 Ipratropium-Albuterol 3 Ml Neb INHALATION 3 ml Q6H.RESP ELVIRA Administration Enoxaparin Sodium 95 mg 10/02/22 19:30 10/05/22 11:27 Enoxaparin 100 Mg/Ml Syringe SUBCUT 95 mg Q12H ELVIRA Administration Hydrochlorothiazide 25 mg 10/03/22 09:00 10/04/22 08:11 Hydrochlorothiazide 25 Mg Tablet PO 25 mg DAILY ELVIRA Administration Albumin Human 25 gm in 100 mls @ 60 mls/hr 10/05/22 10:00 10/05/22 11:26 Albumin IV 60 mls/hr Q8H ELVIRA Administration Levofloxacin 500 mg 10/03/22 08:10 10/05/22 11:27 Levofloxacin 500 Mg Tablet PO 500 mg DAILY ELVIRA Administration Protocol Polyethylene Glycol 17 gm 10/04/22 12:15 10/05/22 11:28 Polyethylene Glycol 3350 Pkt 17 Gm PO Not Given BID ELVIRA PFSH Acute PFSH: Medical History BPH (benign prostatic hyperplasia) Chronic indwelling Manning catheter Hip osteoarthritis Hypertension Paroxysmal A-fib Solitary kidney Urinary retention Surgical History H/O hernia repair H/O transurethral resection of prostate Family History Mother Colon cancer Social History Smoking and tobacco status: never smoked Alcohol intake: never Substance/Drug Use: never Household members: spouse Marital status: Vitals/I&O/Wt Last Vital Signs Temp 97.6 F 10/05/22 04:00 Pulse 142 H 10/05/22 11:58 Resp 22 H 10/05/22 11:58 BP 148/77 10/05/22 11:58 Pulse Ox 93 10/05/22 11:58 O2 Del Method 10/05/22 08:00 O2 Flow Rate 3 10/05/22 08:00 FiO2 3.5 10/04/22 02:00 10/04/22 10/05/22 10/05/22 22:59 06:59 14:59 Intake Total 120 / 840 240 / 240 Output Total 400 / 400 Balance -280 / 440 240 / 240 Weight last 48 hrs Weight 226 lb 9 oz Weight 227 lb 2 oz Physical Exam Narrative: GENERAL: Obese man sitting in bed in no acute distress HEENT: Extraocular movement intact. No pallor or icterus. NECK: central trachea, short thick neck no carotid bruit. CARDIOVASCULAR SYSTEM: S1-S2 irregular. tachycardia+ No murmur or gallops. RESPIRATORY SYSTEM: Chest clear to auscultation. No wheezes rhonchi or rubs heard. ABDOMEN: Soft, nontender and nondistended. Normal bowel sounds present. EXTREMITIES: No cyanosis or edema. No signs of chronic venous insufficiency. BODY PRESS OPERATOR: Patient is alert oriented ?3. No focal neurological deficits. Hard of hearing SKIN: Normal turgor and temperature. PSYCH: Normal insight and judgment. Data 10/05/22 01:20 10/05/22 01:20 Other Labs: UTI showed gram-negative rods. Micro: Microbiology 10/03/22 09:25 Urine Culture - Preliminary Urine,Clean Catch Gram Negative Rods 10/03/22 09:20 Blood Culture - Preliminary Blood Other data: TTE (10/03/22) CONCLUSIONS ?Technically limited quality echocardiogram because of poor ?ultrasonic windows ?LV systolic function is normal with EF of 55-60% ?Left atrial dilation ?Mild mitral regurgitation ?Mild tricuspid regurgitation ?Moderate pulmonary hypertension ?Mildly dilated ascending aorta ?IVC is dilated ?No comparison studies are available A&P Assessment and plan (1) Paroxysmal A-fib: Restart metoprolol tartrate 12.5 mg twice daily with plans to uptitrate based on heart rate response -On therapeutic Lovenox -Dilated left atrium on echocardiogram. 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 I will see how he responds to metoprolol. Patient and family informed that he may eventually need a PPM (2) Bradycardia: (3) JAKE (acute kidney injury): Would benefit from renal ultrasound (4) Hypertension: (5) Chronic indwelling Manning catheter: Plan BPH UTI: With fever, leukocytosis, history of chronic indwelling catheter and gram- negative rods on urine culture; I think IV antibiotics would be more appropriate. Will defer that to primary team Increased ALT Osteoarthritis Obesity Suspect obstructive sleep apnea Consult Attestations Time Spent in Patient Care: Greater than 35 minutes Coding Level of Care Code Acute Passenger Car Conductor for [facility] Fwd Diagnoses Paroxysmal A-fib I48.0 Bradycardia R00.1 JAKE (acute kidney injury) N17.9 Hypertension I10 Chronic indwelling Manning catheter Z97.8
[2022-10-05] MEDS: metoprolol tartrate 1 mg/1 mL SDV 5 mL 5 MG IVP ×2 (13:07→17:01)
[2022-10-05] MEDS: metoprolol tartrate 25 mg Tablet 12.5 MG PO ×2 (13:22→19:55)
--- NOTE | 2022-10-05 14:50 | P.PN_ITS ---
Subjective Subjective: This morning was breathing is feeling about the same. He said no chest pain, Giurgius morning developed atrial fibrillation with RVR into 140s. Maintaining blood pressure. Today he is additionally having productive cough. Vitals/I&O/Wt Last Vital Signs Temp 97.6 F 10/05/22 04:00 Pulse 102 H 10/05/22 14:13 Resp 18 10/05/22 14:08 BP 148/77 10/05/22 11:58 Pulse Ox 95 10/05/22 14:08 O2 Del Method 10/05/22 14:08 O2 Flow Rate 3 10/05/22 14:08 FiO2 3.5 10/04/22 02:00 10/04/22 10/05/22 10/05/22 22:59 06:59 14:59 Intake Total 120 / 840 340 / 340 Output Total 400 / 400 Balance -280 / 440 340 / 340 Weight last 48 hrs Weight 102.767 kg Weight 103.022 kg Physical Exam Narrative: and [id number] at bedside. Const: COMMON NORMALS: patient oriented x3 and alert GENERAL APPEARANCE: cooperative NUTRITIONAL APPEARANCE: overweight ORIENTATION/CONSCIOUSNESS: Yes awake OTHER: Hard of hearing HENMT: COMMON NORMALS: oropharynx normal Neck/C-Spine: COMMON NORMALS: no JVD OTHER: Thick short neck Resp: COMMON NORMALS: normal respiratory effort and clear to auscultation bilaterally AUSCULTATION: clear to auscultation bilaterally and diminished lung sounds OTHER: Pursed lip breathing Cardio: COMMON NORMALS: no JVD, S1 normal heart sound present, S2 normal heart sound present and No murmurs present (Cardio) RATE: tachycardic RHYTHM: abnormal rhythm irregularly irregular HEART SOUNDS: S1 normal heart sound present and S2 normal heart sound present GI: COMMON NORMALS: Normal to inspection, nondistended, normoactive bowel sounds present, Soft to palpation and non-tender PALPATION: Yes Soft to palpation Extremity: COMMON NORMALS: no joint enlargement and no pedal edema Neuro: COMMON NORMALS: patient oriented x3 and moves all extremities SENSORIUM/ORIENTATION: Yes alert Skin: COMMON NORMALS: no rashes or lesions noted GENERAL SKIN EXAM: no rashes or lesions noted Data 10/05/22 01:20 10/05/22 01:20 Micro: Microbiology 10/03/22 09:25 Urine Culture - Preliminary Urine,Clean Catch Gram Negative Rods 10/03/22 09:20 Blood Culture - Preliminary Blood A&P Assessment and plan (1) CHF (congestive heart failure): Continues to require 3 L of oxygen, with continued dyspnea,, did not tolerate diuresis well. Pulm edema component likely also from sleep apnea. Overnight pulse ox requested. Diuretics held for now. Reassess renal function. On TTE noted dilated IVC. With worsening renal function with diuresis. Overall may portend worse prognosis. Reassess renal function, volume status. Acute diastolic heart failure. Bradycardia has improved. (2) Paroxysmal A-fib: Went into A. fib with RVR this morning rates in 140s. Given bradycardia which appeared to be symptomatic and presentation requested cardiology assistance with management. Appreciate evaluation. Agreeable to anticoagulation for stroke risk reduction. Has been on Lovenox, but with worsening renal function. Stop Lovenox. Switch to Eliquis 2.5 mg twice daily. TTE ?Technically limited quality echocardiogram because of poor ?ultrasonic windows ?LV systolic function is normal with EF of 55-60% ?Left atrial dilation ?Mild mitral regurgitation ?Mild tricuspid regurgitation ?Moderate pulmonary hypertension ?Mildly dilated ascending aorta ?IVC is dilated ?No comparison studies are available (3) Dyspnea: Due to acute diastolic CHF, RONALD likely as well. Levaquin for possible pneumonia. Feeling somewhat better today. Today he is coughing, productive cough., Will request sputum culture. Continue Levaquin. Nebs. Very low probability of PE. Blood parameters are checked as well, negative. COVID-19 PCR negative. Additionally dyspneic in the morning, fatigue. Thick short neck. High suspicion for sleep apnea. Possible additional underlying pulmonary disorder. Will benefit from sleep study, PFT. (4) Symptomatic bradycardia: Currently A. fib with RVR. Appreciate cardiac evaluation. Abnormal D-dimer, VQ scan very low probability of PE. Monitor on telemetry. Hold metoprolol. Otherwise electrolytes are okay. TSH is okay. (5) Chronic indwelling Manning catheter: With history of urine obstruction, BPH. Unsuccessful with self-catheterization. Chronic catheter with leg bag. Follow-up with urology. Catheter exchanged. (6) UTI (urinary tract infection): Complicated UTI with chronic suprapubic catheter. Continue Levaquin. Follow-up urine culture. Catheter changed. (7) JAKE (acute kidney injury): We will give 25 g 25% albumin. Creatinine up to 2. Diuretic on hold. Discussed with him to discontinue taking ibuprofen. Hold HCTZ. Held diuretics for now. Reassess renal function. Suprapubic catheter exchanged. Plan Fever: UTI as above, possible pneumonia. Solitary kidney HTN Attestations Medical Necessity Statement*: Continue admission for assessment and management of A. fib with and gentleman originally presenting with bradycardia, hypoxia with acute CHF with poor response to diuresis with JAKE, possible pneumonia. UTI. Coding Level of Care Code Acute Director Of Special Events for [facility] Fwd Diagnoses CHF (congestive heart failure) I50.9 Paroxysmal A-fib I48.0 Dyspnea R06.00 Symptomatic bradycardia R00.1 Chronic indwelling Manning catheter Z97.8 UTI (urinary tract infection) N39.0 JAKE (acute kidney injury) N17.9
--- NOTE | 2022-10-05 20:10 | USR_ITS ---
NOTE: Report was unsigned for reason: Order was edited. Original Signature date and time was: 10/05/2022 [id number] PROCEDURE INFORMATION: Exam: US Retroperitoneal; Complete; Kidneys and Bladder Exam date and time: 10/05/2022 8:53 PM Age: 82 years old Clinical indication: Abnormal findings; Abnormal lab test; Abnormal kidney function lab tests; Additional info: Fausto TECHNIQUE: Imaging protocol: Real-time ultrasound of the retroperitoneum with image documentation. Complete exam focused on the kidneys and bladder. COMPARISON: No relevant prior studies available. FINDINGS: Right kidney: Slightly increased size with normal overall echotexture, measuring 15.2 cm in length. No stones. No hydronephrosis. Left kidney: Not visualized on this exam or on prior CT exam report 03/29/2015 which may be related to agenesis or severe atrophy. Aorta: Poorly visualized aorta with no obvious aneurysm. Urinary bladder: Limited assessment due to nondistention. A suprapubic catheter is in place. [facility] US/US renal BI* [id number] IMPRESSION: 1. Left kidney not visualized in the renal fossa. See discussion above. 2. Otherwise unremarkable right kidney with mild compensatory enlargement.
[2022-10-06] VITALS (14 sets, daily range): BP systolic 113–133; BP diastolic 69–89; PULSE 92–127; RESP 14–24; TEMP 36.7–38.3; O2SAT 3–98
[2022-10-06 06:01] LABS: Basophils % 0.1 %; Eosinophils % 0.1 %; Hematocrit 35.6 % (42.0-52.0); Hemoglobin 11.5 g/dL (11.7-16.6); Lymphocytes # 0.8 10^3/uL (0.8-4.8); Lymphocytes % 7.3 %; Mean Corpuscular HGB Conc 32.3 g/dL (30.0-36.0); Mean Corpuscular Volume 83.6 fl (80-94); Mean Platelet Volume 10.7 fL (7.4-10.4); Monocytes # 1.1 10^3/uL (0.2-0.9); Monocytes % 10.6 %; Neutrophils # 8.57 10^3/uL (1.8-7.7); Nucleated Red Blood Cells % 0 %; Platelet Count 149 10^3/cmm (130-400); Red Blood Count 4.26 10^6/uL (4.1-5.3); Red Cell Distribution Width 14.2 % (12.1-15.1); White Blood Count 10.6 10^3/uL (4.0-10.0)
[2022-10-06 06:31] LABS: Alanine Aminotransferase 31 U/L (0-41); Albumin Level 3.2 g/dL (3.5-5.2); Alkaline Phosphatase 97 U/L (40-130); Aspartate Amino Transferase 28 U/L (0-40); Blood Urea Nitrogen 39 mg/dL (8-23); Calcium 8.6 mg/dL (8.5-10.5); Carbon Dioxide 27 mmol/L (22-29); Chloride 97 mmol/L (98-107); Globulin 2.9 g/dL (1.3-4.6); Glucose 186 mg/dL (65-115); Osmolality Calculated 290 mOsm/kg (285-295); Sodium 133 mmol/L (136-145); Total Bilirubin 0.7 mg/dL (0.15-1.2); Total Protein 6.1 g/dL (6.6-8.7)
--- NOTE | 2022-10-06 08:42 | P.PN_ITS ---
Subjective Subjective: c/o congestion, remains in atrial fibrillation but HR fairly controlled. Medications: Reviewed: Yes Vitals/I&O/Wt Last Vital Signs Temp 99.9 F H 10/06/22 07:40 Pulse 103 H 10/06/22 07:40 Resp 14 10/06/22 07:40 BP 126/82 10/06/22 07:40 Pulse Ox 97 10/06/22 07:40 O2 Del Method 10/06/22 07:40 O2 Flow Rate 2 10/06/22 07:40 FiO2 3.5 10/04/22 02:00 10/05/22 10/06/22 10/06/22 22:59 06:59 14:59 Intake Total 460 / 800 100 / 900 Output Total 1000 / 1000 900 / 1900 Balance -540 / -200 -800 / -1000 Weight last 48 hrs Weight 219 lb 14.4 oz Weight 226 lb 9 oz Physical Exam Narrative: GENERAL: Obese man sitting in bed in no acute distress HEENT: Extraocular movement intact. No pallor or icterus. NECK: central trachea, short thick neck no carotid bruit. CARDIOVASCULAR SYSTEM: S1-S2 irregular. No murmur or gallops. RESPIRATORY SYSTEM: Chest clear to auscultation. No wheezes rhonchi or rubs heard. ABDOMEN: Soft, nontender and nondistended. Normal bowel sounds present. EXTREMITIES: No cyanosis or edema. No signs of chronic venous insufficiency. 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 No focal neurological deficits. Hard of hearing SKIN: Normal turgor and temperature. PSYCH: Normal insight and judgment. Data 10/06/22 05:35 10/06/22 05:35 Micro: Microbiology 10/03/22 09:25 Urine Culture - Final Urine,Clean Catch Escherichia coli A&P Assessment and plan (1) Paroxysmal A-fib: continue metoprolol tartrate 12.5 mg twice daily -On therapeutic Lovenox, may transition to Eliquis -Dilated left atrium on echocardiogram. 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 I will see how he responds to metoprolol. Patient and family informed that he may eventually need a PPM. -will plan for event monitor for 3 weeks on discharge (2) Bradycardia: (3) JAKE (acute kidney injury): -creatinine improving (4) Hypertension: (5) Chronic indwelling Manning catheter: Plan BPH E. coli UTI: With fever, leukocytosis, history of chronic indwelling catheter. Management per primary team Osteoarthritis Obesity Suspect obstructive sleep apnea Attestations Medical Necessity Statement*: As per primary team Time Spent in Patient Care: 16 - 35 minutes Coding Level of Care Code Acute Bait Packer for Chg Fwd Diagnoses Paroxysmal A-fib I48.0 Bradycardia R00.1 JAKE (acute kidney injury) N17.9 Hypertension I10 Chronic indwelling Manning catheter Z97.8
[2022-10-06] MEDS: ipratropium-albuterol 3 mL Neb INHALATION ×3 (08:54→20:43)
[2022-10-06] MEDS: apixaban 5 mg Tablet 2.5 MG PO ×2 (09:17→22:00)
[2022-10-06] MEDS: metoprolol tartrate 25 mg Tablet 12.5 MG PO ×2 (09:18→22:00)
[2022-10-06] MEDS: levoFLOXacin 250 mg Tablet PO (18:11)
[2022-10-06] MEDS: acetaminophen 325 mg Tablet 650 MG PO (18:13)
--- NOTE | 2022-10-06 20:22 | CTR_ITS ---
PROCEDURE INFORMATION: Exam: CT Abdomen And Pelvis Without Contrast Exam date and time: 10/06/2022 9:40 PM Age: 82 years old Clinical indication: Pain; Other: Llq; Prior surgery; Surgery date: 6+ months; Surgery type: Hernia, turp; Additional info: Gram negative bacteremia TECHNIQUE: Imaging protocol: Computed tomography of the abdomen and pelvis without contrast. Radiation optimization: All CT scans at this facility use at least one of these dose optimization techniques: automated exposure control; mA and/or kV adjustment per patient size (includes targeted exams where dose is matched to clinical indication); or iterative reconstruction. COMPARISON: [place] Abdomen/[place] [id number] 03/29/2015 3:43 PM RADIATION DOSE METRICS: Total DLP (mGy-cm): 933.55 FINDINGS: Tubes, catheters and devices: Suprapubic catheter present in the urinary bladder. Lungs: Focus of round atelectasis at the left lung base. Linear atelectasis versus fibrosis in the posterior right lung base. Pleural spaces: Minimal left pleural effusion. Liver: Decreased hepatic density is noted, consistent with hepatic steatosis. Gallbladder and bile ducts: No calcified gallstones in the gallbladder. No gallbladder wall thickening. No pericholecystic fluid. No biliary dilatation. Pancreas: The pancreas is normal in appearance. No pancreatic duct dilatation. Spleen: Nonspecific 6 cm area of decreased attenuation in the lateral aspect of the spleen which may represent a large splenic infarct versus cyst versus other fluid collection. Adrenal glands: The adrenal glands appear within normal limits. Kidneys and ureters: Absent right kidney. Left kidney is morphologically normal. No renal cyst or mass. No calculus or hydronephrosis. Normal ureter. No obstructive uropathy. Stomach and bowel: No acute gastric abnormality demonstrated. The small bowel is unremarkable as demonstrated. Severe diverticulosis of the descending and sigmoid colon. No evidence of acute diverticulitis. Appendix: No evidence of appendicitis. Normal appendix identified. Intraperitoneal space: No pneumoperitoneum. No significant fluid collection. Vasculature: The aorta is unremarkable as demonstrated. Lymph nodes: No pathologically enlarged lymph nodes are demonstrated. Urinary bladder: Empty urinary bladder containing a suprapubic catheter. No gross abnormality of the bladder demonstrated. Reproductive: Prostate gland is enlarged, measuring 7.0 x 6.5 x 7.0 cm. Bones/joints: Severe degenerative change of the bilateral hip joints. Degenerative change of the lumbar spine. No acute osseous abnormality. Soft tissues: 3 x 5 cm right inguinal hernia, containing only fat. CT/CT abdomen pelvis wo con [id number] IMPRESSION: 1. Nonspecific 6 cm area of decreased attenuation in the lateral aspect of the spleen which may represent a large splenic infarct versus cyst versus abscess. This finding is new when compared to CT abdomen of 03/29/2015. Consider follow-up ultrasound or postcontrast CT abdomen to further assess this lesion. 2. Round atelectasis at the left lung base. This may be a sympathetic reaction to adjacent splenic pathology, located just below the diaphragm. 3. Enlarged prostate gland. 4. 3 x 5 cm right inguinal hernia, containing only fat. 5. Severe diverticulosis of the distal colon. No evidence of acute diverticulitis. 6. Decreased hepatic density is noted, consistent with hepatic steatosis.
--- NOTE | 2022-10-06 20:40 | P.PN_ITS ---
Subjective Subjective: Continue ceftriaxone, azithromycin for superimposed bacterial pneumonia on influenza pneumonia. Continue Tamiflu. Vitals/I&O/Wt Last Vital Signs Temp 101 F H 10/06/22 16:00 Pulse 103 H 10/06/22 16:00 Resp 18 10/06/22 16:00 BP 133/77 10/06/22 16:00 Pulse Ox 97 10/06/22 16:00 O2 Del Method 10/06/22 16:00 O2 Flow Rate 3 10/06/22 16:00 FiO2 3.5 10/06/22 12:00 10/06/22 10/06/22 10/06/22 06:59 14:59 22:59 Intake Total 100 / 900 100 / 100 340 / 440 Output Total 900 / 1900 Balance -800 / -1000 100 / 100 340 / 440 Weight last 48 hrs Weight 99.745 kg Weight 102.767 kg Physical Exam Narrative: and [id number] at bedside. Const: COMMON NORMALS: patient oriented x3 and alert GENERAL APPEARANCE: cooperative NUTRITIONAL APPEARANCE: overweight ORIENTATION/CONSCIOUSNESS: Yes awake OTHER: Hard of hearing HENMT: COMMON NORMALS: oropharynx normal Neck/C-Spine: COMMON NORMALS: no JVD OTHER: Thick short neck Resp: COMMON NORMALS: normal respiratory effort and clear to auscultation bilaterally AUSCULTATION: clear to auscultation bilaterally and diminished lung sounds Cardio: COMMON NORMALS: no JVD, S1 normal heart sound present, S2 normal heart sound present and No murmurs present (Cardio) RATE: tachycardic RHYTHM: abnormal rhythm irregularly irregular HEART SOUNDS: S1 normal heart sound present and S2 normal heart sound present GI: COMMON NORMALS: Normal to inspection, nondistended, normoactive bowel sounds present, Soft to palpation and non-tender PALPATION: Yes Soft to palpation Extremity: COMMON NORMALS: no joint enlargement and no pedal edema Neuro: COMMON NORMALS: patient oriented x3 and moves all extremities SENSORIUM/ORIENTATION: Yes alert Skin: COMMON NORMALS: no rashes or lesions noted GENERAL SKIN EXAM: no rashes or lesions noted Data 10/06/22 05:35 10/06/22 05:35 Micro: Microbiology 10/03/22 09:30 Blood Culture - Final Blood Escherichia coli 10/03/22 09:20 Blood Culture - Final Blood Escherichia coli 12/22/22 09:25 Urine Culture - Final Urine,Clean Catch Escherichia coli A&P Assessment and plan (1) Gram-negative bacteremia: Appears to have gram-negative sepsis, noted gram-negative bacteremia, identified as E. coli. Sepsis with fever 101, tachycardia 117. Suspect urinary source. Ultrasound without hydronephrosis. Due to bacteremia will additionally assess CT abdomen pelvis. For now broaden antibiotic coverage with cefoxitin for additional anaerobic coverage. (2) Paroxysmal A-fib: Atrial fibrillation with RVR doing better with low rate metoprolol. Likely trig gered by acute infection. Treat underlying causes. Appreciate cardiac evaluation. Concern for possible early SSS given tachycardia and bradycardia episodes. Down the line may end up requiring pacemaker. Agreeable to anticoagulation for stroke risk reduction. Has been on Lovenox, but with worsening renal function. Stop Lovenox. Switched to Eliquis 2.5 mg twice daily. Reassess renal function. Anticoagulation dose may need to be escalated. TTE ?Technically limited quality echocardiogram because of poor ?ultrasonic windows ?LV systolic function is normal with EF of 55-60% ?Left atrial dilation ?Mild mitral regurgitation ?Mild tricuspid regurgitation ?Moderate pulmonary hypertension ?Mildly dilated ascending aorta ?IVC is dilated ?No comparison studies are available (3) CHF (congestive heart failure): Continues to require 3 L of oxygen, with continued dyspnea, did not tolerate diuresis well. Pulm edema component likely also from sleep apnea. Overnight pulse ox requested. Diuretics held for now. Reassess renal function. On TTE noted dilated IVC. With worsening renal function with diuresis. Overall may portend worse prognosis. Reassess renal function, volume status. Acute diastolic heart failure. Bradycardia has improved. (4) Dyspnea: Due to acute diastolic CHF, RONALD likely as well. Possible pneumonia, although less likely. Feeling somewhat better today. Follow-up sputum culture. With gram-negative marti bacteremia. Cefoxitin for additional anaerobic coverage given persistence of sepsis. Sepsis not initially present on presentation. Very low probability of PE. Blood parameters are checked as well, negative. COVID-19 PCR negative. Additionally dyspneic in the morning, fatigue. Thick short neck. High suspicion for sleep apnea. Possible additional underlying pulmonary disorder. Will benefit from sleep study, PFT. (5) Symptomatic bradycardia: Currently A. fib with RVR. Appreciate cardiac evaluation. Abnormal D-dimer, VQ scan very low probability of PE. Monitor on telemetry. Hold metoprolol. Otherwise electrolytes are okay. TSH is okay. (6) Chronic indwelling Manning catheter: With history of urine obstruction, BPH. Unsuccessful with self-catheterization. Chronic catheter with leg bag. Follow-up with urology. Catheter exchanged. (7) UTI (urinary tract infection): Complicated UTI with chronic suprapubic catheter. Continue antibiotic coverage with cefoxitin for additional anaerobic coverage for now given gram-negative bacteremia, Cipro. Further assessed with CT abdomen pelvis. Follow-up urine culture. Catheter has been changed. (8) JAKE (acute kidney injury): With improvement creatinine down to 1.6. Diuretic on hold. Discussed with him to discontinue taking ibuprofen. Hold HCTZ. Held diuretics for now. Reassess renal function. Suprapubic catheter exchanged. Plan Dry mucous membranes: Add humidifier to oxygen. Saline nasal spray as needed. Solitary kidney HTN Attestations Medical Necessity Statement*: Continue admission for assessment management of gram-negative sepsis, with E. coli bacteremia, complicated UTI, paroxysmal A. fib with RVR, CHF, JAKE. Coding Level of Care Code Acute Small Business Consultant for [facility] Fwd Exam Comprehensive Diagnoses Gram-negative bacteremia R78.81 Paroxysmal A-fib I48.0 CHF (congestive heart failure) I50.9 Dyspnea R06.00 Symptomatic bradycardia R00.1 Chronic indwelling Manning catheter Z97.8 UTI (urinary tract infection) N39.0 JAKE (acute kidney injury) N17.9
[2022-10-06] MEDS: ciprofloxacin 500 mg Tablet 250 MG PO (22:00)
[2022-10-06] MEDS: ceFOXitin 2,000 MG in sodium chloride 0.9% (plus) 50 ML 100 MG IV (22:02)
[2022-10-07] VITALS (15 sets, daily range): BP systolic 111–135; BP diastolic 64–90; PULSE 89–117; RESP 12–31; TEMP 36.6–37.9; O2SAT 3–98
[2022-10-07] MEDS: ipratropium-albuterol 3 mL Neb INHALATION ×4 (01:38→20:18)
[2022-10-07 03:59] LABS: Basophils % 0.4 %; Eosinophils % 0.3 %; Hematocrit 36.8 % (42.0-52.0); Hemoglobin 11.6 g/dL (11.7-16.6); Lymphocytes # 1.2 10^3/uL (0.8-4.8); Lymphocytes % 15.2 %; Mean Corpuscular HGB Conc 31.5 g/dL (30.0-36.0); Mean Corpuscular Volume 85.6 fl (80-94); Mean Platelet Volume 10.7 fL (7.4-10.4); Monocytes # 1.3 10^3/uL (0.2-0.9); Monocytes % 17.4 %; Neutrophils # 5.06 10^3/uL (1.8-7.7); Neutrophils % 65.4 %; Nucleated Red Blood Cells % 0 %; Platelet Count 167 10^3/cmm (130-400); Red Cell Distribution Width 14.6 % (12.1-15.1); White Blood Count 7.7 10^3/uL (4.0-10.0)
[2022-10-07 04:25] LABS: Alanine Aminotransferase 32 U/L (0-41); Albumin Level 3.6 g/dL (3.5-5.2); Alkaline Phosphatase 95 U/L (40-130); Aspartate Amino Transferase 38 U/L (0-40); Blood Urea Nitrogen 37 mg/dL (8-23); Calcium 8.4 mg/dL (8.5-10.5); Carbon Dioxide 28 mmol/L (22-29); Chloride 97 mmol/L (98-107); Globulin 2.6 g/dL (1.3-4.6); Glucose 187 mg/dL (65-115); Osmolality Calculated 296 mOsm/kg (285-295); Sodium 136 mmol/L (136-145); Total Bilirubin 0.5 mg/dL (0.15-1.2); Total Protein 6.2 g/dL (6.6-8.7)
[2022-10-07] MEDS: ceFOXitin 2,000 MG in sodium chloride 0.9% (plus) 50 ML 100 MG IV (05:28)
[2022-10-07] MEDS: metoprolol tartrate 25 mg Tablet 12.5 MG PO (09:42)
[2022-10-07] MEDS: apixaban 5 mg Tablet 2.5 MG PO ×2 (09:42→22:25)
[2022-10-07] MEDS: ciprofloxacin 500 mg Tablet 250 MG PO (09:42)
[2022-10-07] MEDS: polyethylene glycol 3350 Pkt 17 gm PO (09:43)
--- NOTE | 2022-10-07 11:41 | P.PN_ITS ---
Subjective Subjective: Patient is eager to go home. Blood culture grew E. coli and he was started on IV antibiotics. Still coughing on taking deep breaths and intermittently on laying in bed. Medications: Reviewed: Yes Vitals/I&O/Wt Last Vital Signs Temp 100.2 F H 10/07/22 11:36 Pulse 100 10/07/22 11:36 Resp 20 H 10/07/22 11:36 BP 132/77 10/07/22 11:36 Pulse Ox 96 10/07/22 11:36 O2 Del Method 10/07/22 08:00 O2 Flow Rate 3 10/07/22 08:00 FiO2 3 10/07/22 08:46 10/06/22 10/07/22 10/07/22 22:59 06:59 14:59 Intake Total 510 / 610 150 / 760 240 / 240 Output Total 600 / 600 600 / 600 Balance 510 / 610 -450 / 160 -360 / -360 Weight last 48 hrs Weight 220 lb 8 oz Weight 219 lb 14.4 oz Physical Exam Narrative: GENERAL: Obese man sitting in bed in no acute distress HEENT: Extraocular movement intact. No pallor or icterus. NECK: central trachea, short thick neck no carotid bruit. CARDIOVASCULAR SYSTEM: S1-S2 irregular. No murmur or gallops. RESPIRATORY SYSTEM: Chest clear to auscultation. Decreased breath sounds at bases (L>R), no wheezes rhonchi or rubs heard. ABDOMEN: Soft, nontender and nondistended. Normal bowel sounds present. EXTREMITIES: No cyanosis or edema. No signs of chronic venous insufficiency. GLOBAL CHIEF CREATIVE OFFICER: Patient is alert oriented ?3. No focal neurological deficits. Hard of hearing SKIN: Normal turgor and temperature. PSYCH: Normal insight and judgment. Data 10/07/22 02:42 10/07/22 02:42 Micro: Microbiology 10/03/22 09:30 Blood Culture - Final Blood Escherichia coli 10/03/22 09:20 Blood Culture - Final Blood Escherichia coli A&P Assessment and plan (1) Paroxysmal A-fib: continue metoprolol tartrate 12.5 mg twice daily -On Eliquis -Dilated left atrium on echocardiogram. 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 I will see how he responds to metoprolol. Patient and family informed that he may eventually need a PPM. -will plan for event monitor for 3 weeks on discharge -Stable from cardiac standpoint to be discharged once deemed appropriate medically.. -Follow-up in 4 to 6 weeks with Elen. (2) Bradycardia: (3) JAKE (acute kidney injury): -creatinine at 1.6 today (4) Hypertension: (5) Chronic indwelling Manning catheter: Plan E. coli bacteremia BPH E. coli UTI: With fever, leukocytosis, history of chronic indwelling catheter. Management per primary team Osteoarthritis Obesity Suspect obstructive sleep apnea Attestations Medical Necessity Statement*: As per primary team Time Spent in Patient Care: 16 - 35 minutes Coding Level of Care Code Acute Photographic Press Screwmaker for g Fwd Diagnoses Paroxysmal A-fib I48.0 Bradycardia R00.1 JAKE (acute kidney injury) N17.9 Hypertension I10 Chronic indwelling Manning catheter Z97.8
[2022-10-07] MEDS: FUROsemide 10 mg/mL SDV 4mL 40 MG IVP (16:37)
[2022-10-07] MEDS: cefepime 1,000 MG in sodium chloride 0.9% (plus) 50 ML 100 MG IV (16:37)
--- NOTE | 2022-10-07 17:04 | P.PN_ITS ---
Subjective Subjective: Hospital course, labs appreciated. Seen with at bedside. On examination on 3 L. T-max 100 Fahrenheit last 24 hours. Patient is eager to go home. We discussed with ongoing gram-negative bacteremia ~10 patient is 24 hours afebrile it will be advised not to discharge because of potential chance of him worsening or not clearing of the infection completely. Patient verbalized understanding and is agreeable to stay. Vitals/I&O/Wt Last Vital Signs Temp 100.2 F H 10/07/22 11:36 Pulse 89 10/07/22 14:35 Resp 18 10/07/22 14:35 BP 132/77 10/07/22 11:36 Pulse Ox 94 10/07/22 14:35 O2 Del Method 10/07/22 08:00 O2 Flow Rate 3 10/07/22 08:00 FiO2 3 10/07/22 14:35 10/07/22 10/07/22 10/07/22 06:59 14:59 22:59 Intake Total 150 / 760 340 / 340 Output Total 600 / 600 600 / 600 Balance -450 / 160 -260 / -260 Weight last 48 hrs Weight 100.017 kg Weight 99.745 kg Physical Exam Narrative: and [id number] at bedside. Const: COMMON NORMALS: patient oriented x3 and alert GENERAL APPEARANCE: cooperative NUTRITIONAL APPEARANCE: overweight ORIENTATION/CONSCIOUSNESS: Yes awake OTHER: Hard of hearing HENMT: COMMON NORMALS: oropharynx normal Neck/C-Spine: COMMON NORMALS: no JVD OTHER: Thick short neck Resp: COMMON NORMALS: normal respiratory effort and clear to auscultation bilaterally AUSCULTATION: clear to auscultation bilaterally and diminished lung sounds Cardio: COMMON NORMALS: no JVD, S1 normal heart sound present, S2 normal heart sound present and No murmurs present (Cardio) RATE: tachycardic RHYTHM: abnormal rhythm irregularly irregular HEART SOUNDS: S1 normal heart sound present and S2 normal heart sound present GI: COMMON NORMALS: Normal to inspection, nondistended, normoactive bowel sounds present, Soft to palpation and non-tender PALPATION: Yes Soft to p alpation Extremity: COMMON NORMALS: no joint enlargement and no pedal edema Neuro: COMMON NORMALS: patient oriented x3 and moves all extremities SENSORIUM/ORIENTATION: Yes alert Skin: COMMON NORMALS: no rashes or lesions noted GENERAL SKIN EXAM: no rashes or lesions noted Data 10/07/22 02:42 10/07/22 02:42 Micro: Microbiology 10/07/22 14:12 Blood Culture - Preliminary Blood SPECIMEN COLLECTED 10/07/22 14:12 Blood Culture - Preliminary Blood SPECIMEN COLLECTED 10/03/22 09:30 Blood Culture - Final Blood Escherichia coli 10/03/22 09:20 Blood Culture - Final Blood Escherichia coli A&P Assessment and plan (1) Sepsis: Not present on admission. Associated with tachycardia, fever of more than 101, leukocytosis, acute kidney injury with creatinine worsening to more than 2, atrial fibrillation with rapid ventricular response. Associated with UTI. Concern for pneumonia as well. Also has E. coli bacteremia (2) E coli bacteremia: Most likely is source of infection is complicated cystitis. Patient continues to spike daily fevers. Repeat blood cultures. CT abdomen pelvis done negative for any obstructive uropathy. Concern for a possible splenic infarct. Will do upper quadrant ultrasound. Appreciated sensitivities. Switch to IV cefepime 1 g IV every 12 hourly. (3) Paroxysmal A-fib: Appreciate cardiology recommendations. Concern for early sick sinus syndrome given tachycardia and bradycardia episodes. Heart rate well controlled with metoprolol 25 mg twice daily. Monitor heart rate. Echocardiogram done shows an EF of 60%, LA dilation, mild MR mild TR, moderate pulmonary hypertension. IV Lasix 40 mg one-time. (4) Dyspnea: Due to acute diastolic CHF, RONALD likely as well. Possible pneumonia, although less likely. Feeling somewhat better today. Sputum culture not yet collected. Antibiotics for gram-negative bacteremia will also help with possible pneumonia. Repeat chest x-ray. Chest x-ray on admission negative for consolidation. VQ scan showed low probability PE. Patient will most likely need an outpatient sleep study. (5) CHF (congestive heart failure): Strict and proper charting, daily weights. IV Lasix as above. Fluid restriction up to 1500 cc. Oxygen supplementation keeping saturation more than 90%. Qualifiers: Heart failure type: diastolic Heart failure chronicity: acute on pierogi maker teresa Qualified Code(s): I50.33 - Acute on chronic diastolic (congestive) heart failure (6) Chronic indwelling Manning catheter: With history of urine obstruction, BPH. Unsuccessful with self-catheterization. Chronic catheter with leg bag. Follow-up with urology. Catheter exchanged. (7) UTI (urinary tract infection): Complicated UTI with chronic suprapubic catheter. Treatment as above. Catheter has been changed. (8) JAKE (acute kidney injury): Creatinine improving to 1.6. Baseline creatinine seems to be around 1. Medical reconciliation done for nephrotoxic drugs. Monitor urine output, BMP daily. (9) Symptomatic bradycardia: As above. (10) Suprapubic catheter: Plan Full code. Cardiac diet. Eliquis is a pleasant DVT prophylaxis. Famotidine for PUD prophylaxis. Attestations 2 Medical Necessity Statement*: Patient requires further hospitalization for management of E. coli bacteremia in setting of complicated cystitis,, chronic suprapubic catheter, acute kidney injury, atrial fibrillation with rapid ventricular response, hypoxia secondary congestive heart failure Time Spent in Patient Care: Greater than 35 minutes Coding Level of Care Code Acute Ambulance Assistant for [facility] Fwd Diagnoses Sepsis A41.9 E coli bacteremia R78.81; B96.20 Paroxysmal A-fib I48.0 Dyspnea R06.00 CHF (congestive heart failure) I50.33 Heart failure type: diastolic Heart failure chronicity: acute on chronic Chronic indwelling Manning catheter Z97.8 UTI (urinary tract infection) N39.0 JAKE (acute kidney injury) N17.9 Symptomatic bradycardia R00.1 Suprapubic catheter Z93.59
[2022-10-07] MEDS: metoprolol tartrate 25 mg Tablet PO (22:24)
[2022-10-08] VITALS (12 sets, daily range): BP systolic 99–129; BP diastolic 60–85; PULSE 72–108; RESP 17–27; TEMP 36.6–37; O2SAT 90–94
[2022-10-08] MEDS: ipratropium-albuterol 3 mL Neb INHALATION ×5 (02:49→22:25)
[2022-10-08 03:10] LABS: Basophils % 0.2 %; Eosinophils % 0.2 %; Hematocrit 37.6 % (42.0-52.0); Hemoglobin 11.8 g/dL (11.7-16.6); Lymphocytes # 1.3 10^3/uL (0.8-4.8); Lymphocytes % 15.5 %; Mean Corpuscular HGB Conc 31.4 g/dL (30.0-36.0); Mean Corpuscular Hemoglobin 26.6 pg (28.0-34.0); Mean Corpuscular Volume 84.9 fl (80-94); Mean Platelet Volume 10.5 fL (7.4-10.4); Monocytes # 1.5 10^3/uL (0.2-0.9); Monocytes % 17.4 %; Nucleated Red Blood Cells % 0 %; Platelet Count 175 10^3/cmm (130-400); Red Blood Count 4.43 10^6/uL (4.1-5.3); Red Cell Distribution Width 14.5 % (12.1-15.1); White Blood Count 8.6 10^3/uL (4.0-10.0)
[2022-10-08 03:32] LABS: Alanine Aminotransferase 34 U/L (0-41); Albumin Level 3.8 g/dL (3.5-5.2); Alkaline Phosphatase 87 U/L (40-130); Anion Gap 14.8 (5-19); Aspartate Amino Transferase 34 U/L (0-40); Blood Urea Nitrogen 33 mg/dL (8-23); Calcium 8.6 mg/dL (8.5-10.5); Carbon Dioxide 29 mmol/L (22-29); Chloride 95 mmol/L (98-107); Globulin 2.7 g/dL (1.3-4.6); Glucose 179 mg/dL (65-115); Osmolality Calculated 292 mOsm/kg (285-295); Potassium 3.8 mmol/L (3.5-5.1); Sodium 135 mmol/L (136-145); Total Bilirubin 0.5 mg/dL (0.15-1.2); Total Protein 6.5 g/dL (6.6-8.7)
[2022-10-08] MEDS: cefepime 1,000 MG in sodium chloride 0.9% (plus) 50 ML 100 MG IV ×2 (03:33→16:37)
--- NOTE | 2022-10-08 08:58 | XR_ITS ---
WS: [id number] Portable AP upright chest, 10/08/2022 Clinical Data: Hypoxia Comparison: Portable chest, 10/03/2022 Findings: No nodules, masses or effusions are seen. The heart is slightly enlarged. The pulmonary vas cularity is not increased. No pneumonia or pneumothorax is seen. The aortic arch shows tortuosity. Th ere is a dextroscoliosis of the thoracic spine. Monitor leads are on the chest wall. XR/XR chest 1V portable [id number] Impression: Cardiomegaly with clearing of pulmonary vascular congestion.
[2022-10-08] MEDS: apixaban 5 mg Tablet 2.5 MG PO ×2 (09:42→20:31)
[2022-10-08] MEDS: metoprolol tartrate 25 mg Tablet PO ×2 (09:42→20:31)
[2022-10-08] MEDS: FUROsemide 40 mg Tablet PO (09:42)
--- NOTE | 2022-10-08 10:56 | PC.SOCIAL ---
Pg 2 IMM Explained to pt Pg 2 IMM. No questions voiced. Provided pt a copy. Initialed, dated, & timed a copy & placed in chart.
--- NOTE | 2022-10-08 13:46 | PM.PN ---
Subjective Subjective: No acute events overnight. On examination patient is lying comfortably in bed. Patient was weaned off oxygen. Currently saturating well on room air. Has remained afebrile. T-max yesterday afternoon 100 Fahrenheit. Medications: Reviewed: Yes Vitals/I&O/Wt Last Vital Signs Temp 98.5 F 10/08/22 11:35 Pulse 76 10/08/22 11:35 Resp 17 10/08/22 11:35 BP 118/74 10/08/22 11:35 Pulse Ox 94 10/08/22 11:35 O2 Del Method 10/08/22 11:35 O2 Flow Rate 3 10/07/22 08:00 FiO2 2 10/08/22 08:00 10/07/22 10/08/22 10/08/22 22:59 06:59 14:59 Intake Total 320 / 660 150 / 810 1060 / 1060 Output Total 1000 / 1600 3200 / 4800 Balance -680 / -940 -3050 / -3990 1060 / 1060 Weight last 48 hrs Weight 98.747 kg Weight 100.017 kg Physical Exam Narrative: and [id number] at bedside. Const: COMMON NORMALS: patient oriented x3 and alert GENERAL APPEARANCE: cooperative NUTRITIONAL APPEARANCE: overweight ORIENTATION/CONSCIOUSNESS: Yes awake OTHER: Hard of hearing HENMT: COMMON NORMALS: oropharynx normal Neck/C-Spine: COMMON NORMALS: no JVD OTHER: Thick short neck Resp: COMMON NORMALS: normal respiratory effort and clear to auscultation bilaterally AUSCULTATION: clear to auscultation bilaterally and diminished lung sounds Cardio: COMMON NORMALS: no JVD, S1 normal heart sound present, S2 normal heart sound present and No murmurs present (Cardio) RATE: tachycardic RHYTHM: abnormal rhythm irregularly irregular HEART SOUNDS: S1 normal heart sound present and S2 normal heart sound present GI: COMMON NORMALS: Normal to inspection, nondistended, normoactive bowel sounds present, Soft to palpation and non-tender PALPATION: Yes Soft to palpation Extremity: COMMON NORMALS: no joint enlargement and no pedal edema Neuro: COMMON NORMALS: patient oriented x3 and moves all extremities SENSORIUM/ORIENTATION: Yes alert Skin: COMMON NORMALS: no rashes or lesions noted GENERAL SKIN EXAM: no rashes or lesions noted Data 10/08/22 02:42 10/08/22 02:42 Micro: Microbiology 10/07/22 14:12 Blood Culture - Preliminary Blood SPECIMEN COLLECTED 10/07/22 14:12 Blood Culture - Preliminary Blood SPECIMEN COLLECTED A&P Assessment and plan (1) Sepsis: Not present on admission. Associated with tachycardia, fever of more than 101, leukocytosis, acute kidney injury with creatinine worsening to more than 2, atrial fibrillation with rapid ventricular response. Associated with UTI. Concern for pneumonia as well. Also has E. coli bacteremia (2) E coli bacteremia: Most likely is source of infection is complicated cystitis. Patient continues to spike daily fevers. Repeat blood cultures. CT abdomen pelvis done negative for any obstructive uropathy. Concern for a possible splenic infarct. Will do upper quadrant ultrasound. Appreciated sensitivities. Switch to IV cefepime 1 g IV every 12 hourly. (3) Paroxysmal A-fib: Appreciate cardiology recommendations. Concern for early sick sinus syndrome given tachycardia and bradycardia episodes. Heart rate well controlled with metoprolol 25 mg twice daily. Monitor heart rate. Echocardiogram done shows an EF of 60%, LA dilation, mild MR mild TR, moderate pulmonary hypertension. IV Lasix 40 mg one-time. (4) Dyspnea: Due to acute diastolic CHF, RONALD likely as well. Feeling somewhat better today. Sputum culture not yet collected. Antibiotics for gram-negative bacteremia will also help with possible pneumonia. Repeat chest x-ray. Chest x-ray on admission negative for consolidation. VQ scan showed low probability PE. Patient will most likely need an outpatient sleep study. (5) CHF (congestive heart failure): Strict and proper charting, daily weights. IV Lasix as above. Fluid restriction up to 1500 cc. Oxygen supplementation keeping saturation more than 90%. Qualifiers: Heart failure type: diastolic Heart failure chronicity: acute on chronic Qualified Code(s): I50.33 - Acute on chronic diastolic (congestive) heart failure (6) Chronic indwelling Manning catheter: With history of urine obstruction, BPH. Unsuccessful with self-catheterization. Chronic catheter with leg bag. Follow-up with urology. Catheter exchanged. (7) UTI (urinary tract infection): Complicated UTI with chronic suprapubic catheter. Treatment as above. Catheter has been changed. (8) JAKE (acute kidney injury): Creatinine stable at 1.6. Baseline creatinine seems to be around 1. Medical reconciliation done for nephrotoxic drugs. Monitor urine output, BMP daily. (9) Symptomatic bradycardia: As above. (10) Suprapubic catheter: Plan Full code. Cardiac diet. Eliquis is a pleasant DVT prophylaxis. Famotidine for PUD prophylaxis. Plan for the day: Continue with IV cefepime as per results of urine and blood cultures sensitivities. Monitor for fevers. Follow-up blood cultures. Lasix 40 mg oral. Strict input output charting, daily weights. Home O2 evaluation. Target oxygen saturation more than 90%. Continue with oral metoprolol 25 mg twice daily. Physical therapy evaluation. Attestations Medical Necessity Statement*: Requires further hospitalization for management of E. 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
--- NOTE | 2022-10-08 13:49 | US_ITS ---
WS: [id number] Limited abdomen ultrasound. HISTORY: Possible splenic abscess. COMPARISON: CT 10/06/2022. Spleen measures 12.7 cm in length. Variable echogenicity within the spleen. There is no increased vas cularity. Complex fluid collection with low-level echoes identified. This is not a well organized col lection measures approximately 7.7 x 2.5 cm at its maximum. No increased vascularity. No thick wall. US/US abdomen limited [id number] IMPRESSION: Complex fluid collection within the spleen. No increased vascularity and no sig nificant encapsulation. May be related to hemorrhage or abscess. On the recent CT there is not a lot of inflammation surrounding the spleen. There is also no perisplenic fluid seen by ultrasound.
--- NOTE | 2022-10-08 17:19 | PC.RESP ---
Home Oxygen Evaluation Patient walked 100 feet during the evaluation and did not experience any desaturations. Patient was able to maintain SpO2 at 92% and better while on room air.
[2022-10-09] VITALS (9 sets, daily range): BP systolic 126; BP diastolic 89; PULSE 88–105; RESP 15–23; TEMP 36.6; O2SAT 92–97
[2022-10-09] MEDS: cefepime 1,000 MG in sodium chloride 0.9% (plus) 50 ML 100 MG IV (01:12)
[2022-10-09] MEDS: HYDROcodone-acetaminophen 5-325 mg Tablet 1 TAB PO (01:17)
[2022-10-09] MEDS: ipratropium-albuterol 3 mL Neb INHALATION (03:45)
[2022-10-09] MEDS: apixaban 5 mg Tablet 2.5 MG PO (08:44)
[2022-10-09] MEDS: metoprolol tartrate 25 mg Tablet PO (08:45)
--- NOTE | 2022-10-09 08:46 | PM.DCS ---
Discharge Providers Date of Admission: 10/03/22 12:16 Date of Discharge: October 09, 2022 Attending Provider at Admission: Suresh Hahn Attending Provider at Discharge: Edinson Dahl MD Consults: Cardiology: Dr. Wen Primary Care Provider: Jorge Hess MD Diagnoses at Discharge Discharge Diagnosis (1) Sepsis: Status: Acute (2) E coli bacteremia: Status: Acute (3) Paroxysmal A-fib: Status: Acute (4) Dyspnea: Status: Acute (5) CHF (congestive heart failure): Status: Acute Qualifiers: Heart failure chronicity: acute on chronic Heart failure type: diastolic Qualified Code(s): I50.33 - Acute on chronic diastolic (congestive) heart failure (6) Chronic indwelling Manning catheter: Status: Acute (7) UTI (urinary tract infection): Status: Acute (8) JAKE (acute kidney injury): Status: Acute (9) Symptomatic bradycardia: Status: Acute (10) Suprapubic catheter: Status: Inactive Reason for Visit Reason for Visit: chest pains, low hr Brief History: History as per HPI: Pleasant 82-year-old gentleman, hard of hearing, with history of HTN, BPH, urinary retention, chronic Manning catheter, recently diagnosed with atrial fibrillation, started on metoprolol, aspirin.? He noticed that after starting metoprolol his heart rate has been decreasing.? Presented to the hospital due to generalized arm pain, feeling short of breath, mild pain/discomfort in his arms.? Noted to be bradycardic, heart rates in the 40s.? With leukocytosis 12,000.? Afebrile.? Saturating 92% on room air.? BUN 24, creatinine 1.2, ALT 71.? NT proBNP 1931 without prior.? Baseline troponin 32, QRS 133.? Sinus bradycardia on EKG.? Chest x-ray without acute findings, some interval cardiac lodgment since prior study. Hospital Course Hospital Course Patient was outflows admit to the hospital further evaluation and management of symptomatic bradycardia with history of paroxysmal A. fib. On admission patient was in acute kidney injury and was short of breath just thought to be secondary to heart failure and obstructive sleep apnea. Pulm embolism on admission was ruled out by negative VQ scan. Metoprolol was withheld. There was also concern for UTI hence he was started on broad-spectrum antibiotics and his chronic indwelling suprapubic catheter was exchanged. Echocardiogram was done which showed an EF of 55 to 60% with dilated left atrium. He was started on IV diuresis to which he responded well and his difficulty in breathing and his kidney functions improved. During hospitalization his urine culture and blood culture came back positive for E. coli. Antibiotics were changed as per culture sensitivities. Patient did have an episode of atrial fibrillation with rapid ventricular response for which cardiology was consulted and he was restarted on low-dose metoprolol. There is a concern for a possible early sick sinus syndrome with occasional episodes of bradycardia for which he will possibly need pacemaker as an outpatient in future. He has been discharged hemodynamically stable condition on oral antibiotics for next 14 days for bacteremia, anticoagulation and metoprolol as an outpatient. He is to follow-up with cardiology in 2 weeks and his primary care provider within next 1 week. He is to maintain a blood pressure diary. His hydrochlorothiazide has been withheld and his blood he is to take Lasix 20 mg oral daily. Prior to discharge home O2 eval and physical therapy evaluation was done. Physical Exam Narrative: and [id number] at bedside. Const: COMMON NORMALS: patient oriented x3 and alert GENERAL APPEARANCE: cooperative NUTRITIONAL APPEARANCE: overweight ORIENTATION/CONSCIOUSNESS: Yes awake OTHER: Hard of hearing HENMT: COMMON NORMALS: oropharynx normal Neck/C-Spine: COMMON NORMALS: no JVD OTHER: Thick short neck Resp: COMMON NORMALS: normal respiratory effort and clear to auscultation bilaterally AUSCULTATION: clear to auscultation bilaterally and diminished lung sounds Cardio: COMMON NORMALS: no JVD, S1 normal heart sound present, S2 normal heart sound present and No murmurs present (Cardio) RATE: tachycardic RHYTHM: abnormal rhythm irregularly irregular HEART SOUNDS: S1 normal heart sound present and S2 normal heart sound present GI: COMMON NORMALS: Normal to inspection, nondistended, normoactive bowel sounds present, Soft to palpation and non-tender PALPATION: Yes Soft to palpation Extremity: COMMON NORMALS: no joint enlargement and no pedal edema Neuro: COMMON NORMALS: patient oriented x3 and moves all extremities SENSORIUM/ORIENTATION: Yes alert Skin: COMMON NORMALS: no rashes or lesions noted GENERAL SKIN EXAM: no rashes or lesions noted Discharge Data Studies Completed and Pending Completed Studies During Hospitalization Category Date Time Status CT abdomen pelvis wo con [id number] Routine Cat Scan 10/06/22 20:22 Completed CXRP [XR chest 1V portable [id number]] Routine Exams 10/03/22 07:53 Completed XR chest 1V portable [id number] Routine Exams 10/08/22 08:58 Completed XR chest 1V portable [id number] Stat Exams 10/02/22 14:07 Completed NM pul vent and perfus* [id number] Routine Nuc Med 10/03/22 19:27 Completed CV. echo complete* [id number] Routine Ultrasound 10/02/22 19:05 Completed US abdomen limited [id number] Routine Ultrasound 10/08/22 13:49 Completed US renal BI* [id number] Routine Ultrasound 10/05/22 20:10 Completed Pending at discharge Category Date Time Status Blood Culture Stat Lab 10/07/22 14:12 Results Sputum Culture and Gram Stain Routine Lab 10/05/22 15:02 Uncollected Radiology Impressions Pulmonary Perfusion Imaging 10/03/22 19:27 IMPRESSION: Very low probability pulmonary embolism. Renal Ultrasound 10/05/22 20:10 IMPRESSION: 1. Left kidney not visualized in the renal fossa. See discussion above. 2. Otherwise unremarkable right kidney with mild compensatory enlargement. Abdomen/Pelvis CT 10/06/22 20:22 IMPRESSION: 1. Nonspecific 6 cm area of decreased attenuation in the lateral aspect of the spleen which may represent a large splenic infarct versus cyst versus abscess. This finding is new when compared to CT abdomen of 03/29/2015. Consider follow-up ultrasound or postcontrast CT abdomen to further assess this lesion. 2. Round atelectasis at the left lung base. This may be a sympathetic reaction to adjacent splenic pathology, located just below the diaphragm. 3. Enlarged prostate gland. 4. 3 x 5 cm right inguinal hernia, containing only fat. 5. Severe diverticulosis of the distal colon. No evidence of acute diverticulitis. 6. Decreased hepatic density is noted, consistent with hepatic steatosis. Chest X-Ray 10/08/22 08:58 Impression: Cardiomegaly with clearing of pulmonary vascular congestion. Abdomen Ultrasound 10/08/22 13:49 IMPRESSION: Complex fluid collection within the spleen. No increased vascularity and no significant encapsulation. May be related to hemorrhage or abscess. On the recent CT there is not a lot of inflammation surrounding the spleen. There is also no perisplenic fluid seen by ultrasound. Microbiology 10/07/22 14:12 Blood Blood Culture - Preliminary NEGATIVE TO DATE 10/07/22 14:12 Blood Blood Culture - Preliminary NEGATIVE TO DATE 10/03/22 09:30 Blood Blood Culture - Final Escherichia coli 10/03/22 09:20 Blood Blood Culture - Final Escherichia coli 10/03/22 09:25 Urine,Clean Catch Urine Culture - Final Escherichia coli Echocardiogram ?CONCLUSIONS ?Technically limited quality echocardiogram because of poor ?ultrasonic windows ?LV systolic function is normal with EF of 55-60% ?Left atrial dilation ?Mild mitral regurgitation ?Mild tricuspid regurgitation ?Moderate pulmonary hypertension ?Mildly dilated ascending aorta ?IVC is dilated ?No comparison studies are available ?Manpreet Vasquez MD ?(Electronically Signed) ?Final Date:? ? ? 03 October 2022 ? 13:10 Laboratory Results WBC 8.6 10^3/uL (4.0-10.0) 10/08/22 02:42 RBC 4.43 10^6/uL (4.1-5.3) 10/08/22 02:42 Hgb 11.8 g/dL (11.7-16.6) 10/08/22 02:42 Hct 37.6 % (42.0-52.0) L 10/08/22 02:42 MCV 84.9 fl (80-94) 10/08/22 02:42 MCH 26.6 pg (28.0-34.0) L 10/08/22 02:42 MCHC 31.4 g/dL (30.0-36.0) 10/08/22 02:42 RDW 14.5 % (12.1-15.1) 10/08/22 02:42 Plt Count 175 10^3/cmm (130-400) 10/08/22 02:42 MPV 10.5 fL (7.4-10.4) H 10/08/22 02:42 Neut % (Auto) 65.0 % 10/08/22 02:42 Lymph % (Auto) 15.5 % 10/08/22 02:42 [place] % (Auto) 17.4 % 10/08/22 02:42 Eos % (Auto) 0.2 % 10/08/22 02:42 Baso % (Auto) 0.2 % 10/08/22 02:42 Neut # (Auto) 5.60 10^3/uL (1.8-7.7) 10/08/22 02:42 Lymph # (Auto) 1.3 10^3/uL (0.8-4.8) 10/08/22 02:42 [place] # (Auto) 1.5 10^3/uL (0.2-0.9) H 10/08/22 02:42 Eos # (Auto) 0.0 10^3/uL (0.0-0.8) 10/08/22 02:42 Baso # (Auto) 0.0 10^3/uL (0.0-0.1) 10/08/22 02:42 Nucleated RBC % (auto) 0 % 10/08/22 02:42 Nucleated RBCs # 0.0 /100WBC 10/08/22 02:42 PT 14.00 SECONDS (12.1-14.9) 10/02/22 16:06 INR 1.05 (0.8-1.2) 10/02/22 16:06 APTT 27.4 SECONDS (23.9-36.7) 10/02/22 16:06 D-Dimer 2.15 ug/mIFEU (0-0.59) H 10/02/22 16:06 Sodium 135 mmol/L (136-145) L 10/08/22 02:42 Potassium 3.8 mmol/L (3.5-5.1) 10/08/22 02:42 Chloride 95 mmol/L (98-107) L 10/08/22 02:42 Carbon Dioxide 29 mmol/L (22-29) 10/08/22 02:42 Anion Gap 14.8 (5-19) 10/08/22 02:42 BUN 33 mg/dL (8-23) H 10/08/22 02:42 Creatinine 1.6 mg/dL (0.7-1.2) H 10/08/22 02:42 GFR Calculation Not Reportable 10/08/22 02:42 Glucose 179 mg/dL (65-115) H 10/08/22 02:42 Calculated Osmolality 292 mOsm/kg (285-295) 10/08/22 02:42 Calcium 8.6 mg/dL (8.5-10.5) 10/08/22 02:42 Magnesium 2.2 mg/dL (1.7-2.3) 10/02/22 16:06 Total Bilirubin 0.5 mg/dL (0.15-1.2) 10/08/22 02:42 AST 34 U/L (0-40) 10/08/22 02:42 ALT 34 U/L (0-41) 10/08/22 02:42 Alkaline Phosphatase 87 U/L (40-130) 10/08/22 02:42 Troponin T Baseline 32 ng/L (0-15) H 10/02/22 16:06 Troponin T 120 Minute 33.18 ng/L (0-15) H 10/02/22 18:22 Delta Troponin T 1.18 ABS# (0-10) 10/02/22 18:22 Troponin T Hi Sens 6Hr 35.69 ng/L (0-15) H 10/02/22 21:05 Troponin T Hi Sens 6Hr Delta 3.69 ng/L (0-12) 10/02/22 21:05 NT-Pro-B Natriuret Pep 1931 pg/mL (0-450) H 10/02/22 16:06 Total Protein 6.5 g/dL (6.6-8.7) L 10/08/22 02:42 Albumin 3.8 g/dL (3.5-5.2) 10/08/22 02:42 Globulin 2.7 g/dL (1.3-4.6) 10/08/22 02:42 TSH 2.74 uIU/mL (0.27-4.20) 10/02/22 16:06 Urine Color Claritza (Yellow) 10/03/22 09:25 Urine Appearance Hazy (CLEAR) A 10/03/22 09:25 Urine pH 5 (5-7) 10/03/22 09:25 Ur Specific [place] 1.020 (1.005-1.030) 10/03/22 09:25 Urine Protein 2+ (Negative) H 10/03/22 09:25 Urine Glucose (UA) Norm (Normal) 10/03/22 09:25 Urine Ketones 1+ (Negative) H 10/03/22 09:25 Urine Blood 2+ (Negative) H 10/03/22 09:25 Urine Nitrate Positive (Negative) H 10/03/22 09:25 Urine Bilirubin 1+ (Negative) H 10/03/22 09:25 Urine Urobilinogen Neg mg/dL (Negative) 10/03/22 09:25 Ur Leukocyte Esterase 1+ (Negative) H 10/03/22 09:25 Urine RBC 5-10 /hpf (0-2) H 10/03/22 09:25 Urine WBC 5-10 /hpf (0-5) H 10/03/22 09:25 Ur Squamous Epith Cells 0-4 /hpf (0-5) H 10/03/22 09:25 Amorphous Sediment 3+ /hpf 10/03/22 09:25 Urine Bacteria 3+ /hpf (NONE) H 10/03/22 09:25 Fine Granular Casts 0-4 /lpf H 10/03/22 09:25 Urine Mucus 2+ /hpf 10/03/22 09:25 Coronavirus 229E (PCR) Not detected (NOT DETECT) 10/02/22 17:20 Influenza Type A Ag negative (Negative) 10/03/22 08:00 Influenza Type B Ag negative (Negative) 10/03/22 08:00 SARS-CoV-2 (PCR) Not detected (NOT DETECT) 10/02/22 17:20 Vitals Last Vital Signs Temp 97.9 F 10/09/22 03:23 Pulse 93 10/09/22 07:08 Resp 20 H 10/09/22 07:09 BP 126/89 10/09/22 07:08 Pulse Ox 95 10/09/22 07:08 O2 Del Method 10/09/22 03:46 O2 Flow Rate 2 10/09/22 03:46 FiO2 2 10/08/22 08:00 Discharge Plan Discharge Patient Disposition: Home Condition: Stable Prescriptions: New Eliquis 5 mg Tablet 2.5 mg PO BID@0900,2100 Qty: 60 0RF levofloxacin 500 mg tablet 500 mg PO Q24H 14 Days Qty: 14 0RF Lasix 40 mg tablet 20 mg PO QAM Qty: 30 0RF Continued hydrocodone-acetaminophen 5-325 mg tablet 1 tab PO Q8H PRN (Reason: pain) 14 Days Qty: 30 0RF metoprolol tartrate 25 mg tablet 25 mg PO BID Qty: 60 11RF acetaminophen 325 mg Capsule 650 mg PO QID PRN (Reason: Pain) Discontinued hydrochlorothiazide 25 mg tablet 25 mg PO DAILY amlodipine 5 mg tablet 5 mg PO DAILY aspirin 325 mg tablet 325 mg PO DAILY Qty: 30 11RF ibuprofen 200 mg Tablet 400 mg PO Q6H PRN (Reason: Pain) Discharge Orders: Discharge Order (Routine); Ordered 10/09/22 Ordered By: Edinson Dahl Referrals: Yoselin Wen MD [Physician] - 1 month (You have a follow up appointment to see Elen Mccall APRN on 10/22/22 at 10:15am.located in heart care services ) Jorge Hess MD [Primary Care Provider] - 1 week (You have a follow up appointment with Jorge Hess MD on 10/15/22 at 9:20am. ) Discharge Diet: Cardiac Discharge Activity: Resume usual activity and Increase activity as tolerated Patient Instructions: Furosemide (By mouth) (Lasix), Levofloxacin (By mouth), Apixaban (By mouth) (Eliquis), Heart Failure (DC), Urinary Tract Infection in Men (DC), Sepsis (DC), CHF Stoplight, Opioid Safety Activity Restrictions/Additional Instructions: Multiple medication changes have been done. Do not take hydrochlorothiazide, amlodipine anymore. Continue taking metoprolol 25 mg twice daily. Take Eliquis 2.5 mg twice daily which is a blood thinner. Take Lasix 20 mg daily which is a water pill. Check her blood pressure daily at home and maintain a blood pressure diary and follow-up with her primary care provider within next 1 week for further adjustment of antihypertensives as needed. You will be on antibiotic Levaquin 500 mg daily for next 2 weeks. Please repeat CMP weekly while being on antibiotics with your primary care provider. Please follow-up with cardiology within next 1 month. Discharge Attestations Time Spent in Discharge Care*: greater than 30 min Specific Discharge Activities: educating patient, educating and/or supporting family/caregiver, discussing with pcp/other providers, discussing with machine adjuster leader case trim/social workers/dc planners, documenting/other paperwork and evaluating patient/reviewing data Status at Discharge: Cognitive status at discharge: cognitively intact, Behavioral status at discharge: cooperative, Functional status at discharge: independent ambulation, Overall status at discharge: patient is progressing back to baseline Quality Metrics Clinical Quality Measures [ No reported AMI, CVA or VTE this stay] Coding Level of Care Code Acute Chg FW DC note Exam Comprehensive Diagnoses Sepsis A41.9 E coli bacteremia R78.81; B96.20 Paroxysmal A-fib I48.0 Dyspnea R06.00 CHF (congestive heart failure) I50.33 Heart failure chronicity: acute on chronic Heart failure type: diastolic Chronic indwelling Mnaning catheter Z97.8 UTI (urinary tract infection) N39.0 JAKE (acute kidney injury) N17.9 Symptomatic bradycardia R00.1 Suprapubic catheter Z93.59
[2022-10-09 09:34] LABS: Alanine Aminotransferase 33 U/L (0-41); Alkaline Phosphatase 83 U/L (40-130); Anion Gap 16.8 (5-19); Aspartate Amino Transferase 32 U/L (0-40); Blood Urea Nitrogen 39 mg/dL (8-23); Calcium 8.7 mg/dL (8.5-10.5); Carbon Dioxide 28 mmol/L (22-29); Chloride 94 mmol/L (98-107); Globulin 2.5 g/dL (1.3-4.6); Glucose 195 mg/dL (65-115); Osmolality Calculated 295 mOsm/kg (285-295); Potassium 3.8 mmol/L (3.5-5.1); Sodium 135 mmol/L (136-145); Total Bilirubin 0.7 mg/dL (0.15-1.2); Total Protein 7.5 g/dL (6.6-8.7)
--- NOTE | 2022-10-09 11:49 | PC.NURSE ---
discharge instructions given and explained.pt,cg,and relative verb understanding of instructions.discharged via w/c to exit.relative to drive pt home.
== END 2022-10-09 11:51 | disposition home or self-care (01) | DRG 698 ==
LOC: ER 17:30 → CSU 17:45
PROVIDERS: Nurse Practitioner Family; Admitting Provider Internal Medicine; Emergency Provider Emergency Medicine; PCP Family Medicine; Visit Provider Student in an Organized Health Care Education/Training Program
DX: T83.518A Infection and inflammatory reaction due to other urinary catheter, initial encounter (principal); A41.51 Sepsis due to Escherichia coli [E. coli]; I50.33 Acute on chronic diastolic (congestive) heart failure; N17.9 Acute kidney failure, unspecified; N13.8 Other obstructive and reflux uropathy; I11.0 Hypertensive heart disease with heart failure; N30.90 Cystitis, unspecified without hematuria; I48.0 Paroxysmal atrial fibrillation; Y73.8 Miscellaneous gastroenterology and urology devices associated with adverse incidents, not elsewhere classified; N40.1 Benign prostatic hyperplasia with lower urinary tract symptoms; R33.8 Other retention of urine; G47.33 Obstructive sleep apnea (adult) (pediatric); I49.5 Sick sinus syndrome; Z79.891 Long term (current) use of opiate analgesic; Z90.5 Acquired absence of kidney; Z90.79 Acquired absence of other genital organ(s); E66.9 Obesity, unspecified; Z68.32 Body mass index [BMI] 32.0-32.9, adult
CPT/HCPCS: 36415; 71045; 74176; 76705; 76770; 76857; 78014; 80053; 81001; 83735; 83880; 84443; 84484; 85025; 85378; 85610; 85730; 87040; 87077; 87086; 87150; 87186; 87205; 87635; 87804; 93005; 93306; 94640; 94760; 96372; 97116; 97161; 97530; 99285; A9540; A9567; G0378; J0692; J0694; J1650; J1940; J3490; P9046

== ENCOUNTER → 2022-10-22 09:59 | Outpatient (BNVA) | payer MEDICARE, SELFPAY | PROVIDERS: PCP Family Medicine; Visit Provider Nurse Practitioner Family | DX: I48.91 Unspecified atrial fibrillation (principal); I11.0 Hypertensive heart disease with heart failure; I50.9 Heart failure, unspecified; R06.83 Snoring; Z79.01 Long term (current) use of anticoagulants | CPT/HCPCS: 99214 ==

== ENCOUNTER → 2022-10-23 07:57 | Outpatient (BNVA) | payer MEDICARE, SELFPAY | PROVIDERS: PCP Family Medicine; Visit Provider Family Medicine | DX: N17.9 Acute kidney failure, unspecified (principal); I50.9 Heart failure, unspecified; I48.0 Paroxysmal atrial fibrillation; A41.9 Sepsis, unspecified organism; N39.0 Urinary tract infection, site not specified; I48.91 Unspecified atrial fibrillation; R06.00 Dyspnea, unspecified | CPT/HCPCS: 80048; 85025 ==

== ENCOUNTER 2022-12-17 09:00 | Outpatient (CLI) | payer MEDICARE, SELFPAY | END 2022-12-17 09:01 | disposition home or self-care (01) | LOC: SLEEP 12-18 11:21 | PROVIDERS: PCP Family Medicine; Visit Provider Nurse Practitioner Family | DX: G47.33 Obstructive sleep apnea (adult) (pediatric) (principal) | CPT/HCPCS: 80048; 85025; G0399 ==

== ENCOUNTER → 2023-01-07 08:50 | Outpatient (BNVA) | payer MEDICARE, SELFPAY | PROVIDERS: PCP Family Medicine; Visit Provider Family Medicine | DX: R60.9 Edema, unspecified (principal); N39.0 Urinary tract infection, site not specified; R73.9 Hyperglycemia, unspecified | CPT/HCPCS: 80053; 83880; 85025 ==

== ENCOUNTER → 2023-02-06 11:42 | Outpatient (BNVA) | payer MEDICARE, SELFPAY | PROVIDERS: PCP Family Medicine; Visit Provider Family Medicine | DX: N39.0 Urinary tract infection, site not specified (principal); R60.9 Edema, unspecified; R73.9 Hyperglycemia, unspecified; I48.91 Unspecified atrial fibrillation | CPT/HCPCS: 80048; 81003; 83880; 87086 ==

== ENCOUNTER → 2023-02-11 14:43 | Outpatient (BNVA) | payer MEDICARE, SELFPAY | PROVIDERS: PCP Family Medicine; Visit Provider Nurse Practitioner Family | DX: I48.0 Paroxysmal atrial fibrillation (principal); I11.0 Hypertensive heart disease with heart failure; I50.9 Heart failure, unspecified; Z79.01 Long term (current) use of anticoagulants | CPT/HCPCS: 99214 ==

== ENCOUNTER → 2023-02-25 08:04 | Outpatient (BNVA) | payer MEDICARE, SELFPAY | PROVIDERS: PCP Family Medicine; Visit Provider Family Medicine | DX: I50.9 Heart failure, unspecified (principal); M16.9 Osteoarthritis of hip, unspecified; R60.9 Edema, unspecified; R73.9 Hyperglycemia, unspecified; I48.91 Unspecified atrial fibrillation | CPT/HCPCS: 80053; 83880 ==

== ENCOUNTER 2023-04-24 11:00 | Outpatient (CLI) | payer MEDICARE, SELFPAY ==
--- NOTE | 2023-04-24 11:04 | XR_ITS ---
WS: [id number] XR lumbar spine 2-3V* [id number] REASON FOR EXAM: low back pain FINDINGS: There are rudimentary disc formation between S1 and S2. Moderate rotatory scoliosis convex left. Relatively normal lumbar lordosis. Mild biconcave compression deformities L1, L2, L4, and L5 that appear chronic. There is significant disc space narrowing at L2-L3. There is a moderate compression deformity of the superior endplate of L3. Most likely this is chronic. Small potential for subacute compression fractu re. No spondylolysis. There is 5 to 6 mm of anterolisthesis of L3 in relation to L2. 3 to 4 mm of anterolisthesis of L2 in relation to L1, L4 in relation to L3, L5 in relation to L4. Mod erate to significant degenerative change in the facet joints L4-S1. XR/XR lumbar spine 2-3V* [id number] IMPRESSION: Degenerative spondylosis as above. Compression deformities as above.
== END 2023-04-24 11:01 | disposition home or self-care (01) ==
PROVIDERS: PCP Family Medicine; Visit Provider Family Medicine
DX: M54.50 Low back pain, unspecified (principal); M47.817 Spondylosis without myelopathy or radiculopathy, lumbosacral region; M43.8X6 Other specified deforming dorsopathies, lumbar region
CPT/HCPCS: 72100

== ENCOUNTER → 2023-08-13 10:35 | Outpatient (BNVA) | payer MEDICARE, SELFPAY | PROVIDERS: PCP Family Medicine; Visit Provider Internal Medicine Cardiovascular Disease | DX: I48.0 Paroxysmal atrial fibrillation (principal); I48.92 Unspecified atrial flutter; Z79.01 Long term (current) use of anticoagulants; I11.0 Hypertensive heart disease with heart failure; I50.9 Heart failure, unspecified | CPT/HCPCS: 99214 ==

== ENCOUNTER → 2024-03-10 12:55 | Outpatient (BNVA) | payer MEDICARE, SELFPAY | PROVIDERS: PCP Family Medicine; Visit Provider Family Medicine | DX: A41.9 Sepsis, unspecified organism (principal) | CPT/HCPCS: 80053; 85025 ==

== ENCOUNTER 2024-06-19 09:55 | Outpatient (CLI) | payer MEDICARE, SELFPAY | END 2024-06-19 09:56 | disposition home or self-care (01) | PROVIDERS: PCP Family Medicine; Visit Provider Nurse Practitioner Family | DX: N39.0 Urinary tract infection, site not specified (principal) | CPT/HCPCS: 87086 ==

== ENCOUNTER → 2024-06-23 09:46 | Outpatient (BNVA) | payer MEDICARE, SELFPAY | PROVIDERS: PCP Family Medicine; Visit Provider Family Medicine | DX: L98.9 Disorder of the skin and subcutaneous tissue, unspecified (principal) | CPT/HCPCS: 88305 ==

== ENCOUNTER → 2024-07-22 08:57 | Outpatient (BNVA) | payer MEDICARE, SELFPAY | PROVIDERS: PCP Family Medicine; Visit Provider Family Medicine | DX: I50.9 Heart failure, unspecified (principal); I48.91 Unspecified atrial fibrillation; R73.9 Hyperglycemia, unspecified; N17.9 Acute kidney failure, unspecified; Z97.8 Presence of other specified devices | CPT/HCPCS: 80053; 80061; 83036; 83880; 85025 ==

== ENCOUNTER → 2024-10-26 09:24 | Outpatient (BNVA) | payer MEDICARE, SELFPAY | PROVIDERS: PCP Family Medicine; Visit Provider Family Medicine | DX: E11.9 Type 2 diabetes mellitus without complications (principal); I50.9 Heart failure, unspecified; I48.91 Unspecified atrial fibrillation; R06.00 Dyspnea, unspecified; N17.9 Acute kidney failure, unspecified | CPT/HCPCS: 83036; 85025 ==

== ENCOUNTER → 2025-04-21 08:54 | Outpatient (BNVA) | payer MEDICARE, SELFPAY | PROVIDERS: PCP Family Medicine; Visit Provider Family Medicine | DX: I50.9 Heart failure, unspecified (principal); I48.91 Unspecified atrial fibrillation; E11.9 Type 2 diabetes mellitus without complications; R06.00 Dyspnea, unspecified; I48.0 Paroxysmal atrial fibrillation | CPT/HCPCS: 80053; 80061; 83036; 83880; 84443; 85025 ==

== ENCOUNTER → 2025-06-02 08:01 | Outpatient (BNVA) | payer MEDICARE, SELFPAY | PROVIDERS: PCP Family Medicine; Visit Provider Dermatology | DX: D48.5 Neoplasm of uncertain behavior of skin (principal); L72.0 Epidermal cyst; L82.1 Other seborrheic keratosis; L98.8 Other specified disorders of the skin and subcutaneous tissue; Z08 Encounter for follow-up examination after completed treatment for malignant neoplasm; Z85.828 Personal history of other malignant neoplasm of skin; L57.0 Actinic keratosis | CPT/HCPCS: 11102; 17000; 99204 ==

== ENCOUNTER → 2025-08-29 09:10 | Outpatient (BNVA) | payer MEDICARE, SELFPAY | PROVIDERS: PCP Family Medicine; Visit Provider Dermatology | DX: C44.311 Basal cell carcinoma of skin of nose (principal); C44.319 Basal cell carcinoma of skin of other parts of face; L82.1 Other seborrheic keratosis; L98.8 Other specified disorders of the skin and subcutaneous tissue; Z08 Encounter for follow-up examination after completed treatment for malignant neoplasm; Z85.828 Personal history of other malignant neoplasm of skin; L57.0 Actinic keratosis | CPT/HCPCS: 17000; 99213 ==